=== PATIENT | male | born 1990 | race Caucasian/White ===

== ENCOUNTER 2017-06-12 14:56 | Inpatient (IN) | payer OTHER ==
[~2017-06-12] VITALS: Ht 182.9 cm; Wt 97.6 kg
[~2017-06-12 14:56] MED LIST: CYMBALTA60 M1 PO; PERCOCET 325 MG1 TA2 PO; SEROQUEL400 M1 PO; TOPAMAX25 M3 PO
--- NOTE | 2017-06-12 15:15 | ED PSYCHIATRIC COMPLAINT ---
See Addendum History of Present Illness General Chief Complaint: Psychiatric Related Complaint Stated Complaint: POSITIVE SI Source: patient Exam Limitations: no limitations Vital Signs & Intake/Output Vital Signs & Intake/Output Vital Signs Date Time Temp Pulse Resp B/P B/P Pulse O2 O2 Flow FiO2 Mean Ox Delivery Rate 06/12 1459 98.2 90 16 117/79 97 Room Air Allergies Coded Allergies: Penicillins (Severe, HIVES 02/11/16) cefaclor (From CECLOR) (Severe, RASH 02/11/16) bupropion (From WELLBUTRIN) (UNKNOWN 06/12/17) cariprazine (From VRAYLAR) (UNKNOWN 06/12/17) ziprasidone (From GEODON) (UNKNOWN 06/12/17) Reconcile Medications Duloxetine HCl (Cymbalta) 60 MG CAPSULE.DR 1 CAP PO DAILY DEPRESSION ( Reported) Oxcarbazepine 300 MG TABLET 1 TAB PO BID MENTAL HEALTH (Reported) Quetiapine Fumarate (Seroquel) 400 MG TABLET 1 TAB PO QPM DEPRESSION ( Reported) Topiramate (Topamax) 25 MG TABLET 3 TAB PO QPM MENTAL HEALTH (Reported) Triage Note: 27 YEAR OLD MALE TO ER WITH HIS MOM, PT COMPLAINS OF INCREASED DEPRESSION FOR THE PAST COUPLE OF WEEKS AND POSITIVE SI WITH NO PLAN.DENIES DRUG USE/ETOH.TAKES ALL MEDS PRESCRIBED Triage Nurses Notes Reviewed? yes Onset: Abrupt Duration: day(s): Timing: recent history HPI: 06/12/17 4:17 PM 27-year-old man presents to the emergency department complaining of depression and suicidal ideation. According to the patient he was in his usual state of health until the past 2 weeks when he developed depression and suicidal ideation. He says he does not have a plan. He does say that in the past he's attempted to kill himself by drug overdose. He denies any significant medical problems. The onset of the symptoms was abrupt, the duration has been 2 weeks, the severity is significant as his symptoms required him to come to the hospital for care Past History Travel History Traveled to [place] past 21 day No Medical History Any Pertinent Medical History? 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 No Review of Systems Review of Systems Constitutional: Reports: no symptoms. EENTM: Reports: no symptoms. Respiratory: Reports: no symptoms. Cardiovascular: Reports: no symptoms. GI: Reports: no symptoms. Genitourinary: Reports: no symptoms. Musculoskeletal: Reports: no symptoms. Skin: Reports: no symptoms. Neurological/Psychological: Reports: depressed. Hematologic/Endocrine: Reports: no symptoms. Immunologic/Allergic: Reports: no symptoms. All Other Systems: Reviewed and Negative Physical Exam Physical Exam General Appearance: well developed/nourished, alert, awake, anxious, moderate distress Head: atraumatic, normal appearance Eyes: Bilateral: normal appearance, PERRL, EOMI. Ears, Nose, Throat: normal ENT inspection Neck: normal inspection, supple, full range of motion Respiratory: normal breath sounds, chest non-tender, no respiratory distress Cardiovascular: regular rate/rhythm Gastrointestinal: soft, non-tender Extremities: normal range of motion Neurological/Psychiatric: no motor/sensory deficits, awake, agitated, alert Appearance/Memory/Insight: appropriate insight Behavoir/Eye Contact/Speech: cooperative Thoughts/Hallucinations: normal thought pattern, no apparent hallucination Skin: normal color, warm/dry SAD PERSONS SAD PERSONS Response Value Male Sex? yes 1 Age <19 or >45 years? yes 1 Depression/Hopelessness? yes 2 Previous Attempts/Psych Care yes 1 Rational Thinking Loss? yes 2 Single//? yes 1 Social Support? has no support 1 Total 9 SAD PERSONS Done? yes Progress Differential Diagnosis: drug intoxication, drug overdose, depression Plan of Care: Orders Procedure Date/time Status Continuous Observation Monitor 06/12 161 Active URINE DRUG SCREEN FOR ER ONLY 06/12 161 Active ETHANOL 06/12 161 Active COMPREHENSIVE METABOLIC PANEL 06/12 161 Active CBC WITHOUT DIFFERENTIAL 06/12 161 Active ED CRISIS PSYCH CONSULT 06/12 1616 Active Initial ED EKG: none Departure Departure Disposition: STILL A PATIENT Condition: Stable Clinical Impression Primary Impression: Depression Referrals: NOLBERTO BERUMEN,JULIANA Hassan (PCP/Family) Departure Forms: Customer Survey General Discharge Information
[2017-06-12] MEDS ORDERED: OXCARBAZEPINE300 M1 PO (15:31)
[2017-06-12 17:09] LABS: ABSOLUTE BASOPHIL COUNT 0 /CUMM (0.0-0.2); ABSOLUTE EOSINOPHIL COUNT 0.1 /CUMM (0.0-0.7); ABSOLUTE GRANULOCYTE CT 2.5 /CUMM (1.4-6.5); ABSOLUTE LYMPH COUNT 1.1 /CUMM (1.2-3.4); ABSOLUTE MONOCYTE COUNT 0.3 /CUMM (0.10-0.60); BASOPHIL % 0.4 % (0.0-2.0); GRANULOCYTE % 62.4 % (42.2-75.2); HEMATOCRIT 50.6 % (42-52); MEAN CORPUSCULAR HGB 29.4 PG (27.0-31.0); MEAN CORPUSCULAR HGB CONC 33.6 G/DL (33.0-37.0); MEAN CORPUSCULAR VOLUME 87.4 FL (80.0-94.0); MEAN PLATELET VOLUME 8.3 FL (7.4-10.4); PLATELET COUNT 179 /CUMM (130-400); RBC DISTRIBUTION WIDTH 12.5 % (11.5-14.5); RED BLOOD CELL CT 5.79 /CUMM (4.70-6.10)
--- NOTE | 2017-06-12 18:51 | ED PSYCH CRISIS CONSULTATION ---
Crisis Consult Basic Assessment Date of Consult: 06/12/17 Responsible Person/Accompanied By: Self Insurance Authorization: Insurance #1: Insurance name: GUADALUPE LEAVITT Phone number: Policy number: [id number] Group number: Authorization number: ED Provider: Patient's ED Provider: JORGE LUIS LEON DO Primary Care Physician: Patient's PCP: JULIANA ARVIZU MD PCP's Current Psychiatrist: Dr. Damien Enriquez Chief Complaint: Psychiatric Related Complaint Patient's Quote: " I feel very depressed" Present Illness: Patient is a 27 year single male who presents to the emergency room depressed, sad, and hopeless. Patient reports over the past two weeks his depression is getting worse and feeling hopeless. He reports having suicidal ideation stating " I don't want to live". The patient reports having no desire to do anything, spending more time in the bed, and isolating himself. He has a history of suicide attempts cutting his wrist and overdose with pills. He reports being treated by Dr. Sommer at [facility]. The patient reports being treated with Cymbalta 60 mg x1 daily, Seoquel 300 mg x1 daily and Trileptal 300 mg x2 daily. The patient denied any homicidal ideation, denied any auditory or visual hallucinations. He denied any substance abuse treatment or history. Patient's Address: [address] [place] [address] Other Phone Number: Who Do You Live With? Mother Family/Informants Interviewed: Mother Jazmine Frey [phone] Allergies - Coded Allergies: Penicillins (Severe, HIVES 02/11/16) cefaclor (From CECLOR) (Severe, RASH 02/11/16) bupropion (From WELLBUTRIN) (UNKNOWN 06/12/17) cariprazine (From VRAYLAR) (UNKNOWN 06/12/17) ziprasidone (From GEODON) (UNKNOWN 06/12/17) Current Medications - Scheduled Medications Duloxetine HCl (Cymbalta) 60 MG CAPSULE.DR Lakhani CAP PO DAILY DEPRESSION ( Reported) Entered as Reported by HUNTER PRESTON on 08/19/15 1344 Oxcarbazepine 300 MG TABLET 1 TAB PO BID MENTAL HEALTH #60 (Reported) Entered as Reported by HUNTER PRESTON on 06/12/17 1531 Quetiapine Fumarate (Seroquel) 400 MG TABLET 1 TAB PO QPM DEPRESSION ( Reported) Entered as Reported by HUNTER PRESTON on 08/19/15 1344 Discontinued Medications Topiramate (Topamax) 25 MG TABLET 3 TAB PO QPM MENTAL HEALTH (Reported) Discontinued reason: Med no longer needed Laboratory Results: Laboratory Tests 06/12/17 1700: Anion Gap 9, Estimated GFR > 60, BUN/Creatinine Ratio 18.9, Glucose 81, Calcium 9.6, Total Bilirubin 0.6, AST 25, ALT 41, Alkaline Phosphatase 56, Total Protein 7.0, Albumin 4.6, Globulin 2.4, Albumin/Globulin Ratio 1.9, CBC w Diff NO MAN DIFF REQ, RBC 5.79, MCV 87.4, MCH 29.4, RDW 12.5, MPV 8.3, Gran % 62.4, Lymphocytes % 26.5, Monocytes % 7.7, Eosinophils % 3.0, Basophils % 0.4, Absolute Granulocytes 2.5, Absolute Lymphocytes 1.1 L, Absolute Monocytes 0.3, Absolute Eosinophils 0.1, Absolute Basophils 0, PUBS MCHC 33.6, Serum Alcohol < 10.0 06/12/17 1624: Urine Opiates Screen < 100.00, Methadone Screen 95, Barbiturate Screen < 60, Ur Phencyclidine Scrn < 6.00, Amphetamines Screen < 100, U Benzodiazepines Scrn < 85, Urine Cocaine Screen < 50, Urine Cannabis Screen < 5.00 Past History Past Medical History Neurological: NONE EENT: NONE Cardiovascular: NONE Respiratory: NONE Gastrointestinal: NONE Hepatic: NONE Renal: nephrolithiasis Musculoskeletal: NONE Psychiatric: depression Endocrine: NONE Blood Disorders: NONE Cancer(s): 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 Response to Treatment fair Diagnosis by History: Bipolar II Substance Use/Abuse History Drug Use/Abuse Substances Used/Abused No Substance Abuse Treatment Substance Abuse Treatment Past Substance Abuse [place] No Inpatient Treatment No Outpatient Treatment No Current Mental Status Mental Status Orientation: Person, Place, Situation Affect: Depressed, Flat, Hopeless, Sad Speech: Soft Neuro-vegetative: Appetite Decreased, Helpless Appearance Appearance- Dress/Hygiene: Dressed in hospital clothing Behaviors Thought Process: WNL Thought Content: WNL Memory: WNL Insight: Fair SI/HI Risk Assessment Past Suicidal Ideation/Attempts Yes Current Suicidal Ideation/Att Yes Past Homicidal Ideation/Att: No Current Homicidal Ideation/Attempts No Degree of Intent: Thoughts/No Intent Danger To: Self Gravely Disabled: Lack of Insight, Poor Judgment Risk Factors: history of suicide atmpts, SA/MH hospitalized, limited support Lethality Ratin PTSD Checklist PTSD Score: PTSD Score: Response Value Disturbing memories,thoughts,images of stressful experience? Not at all 1 Disturbing dreams of stressful experience from past? Not at all 1 Suddenly acting/feeling as if reliving stressful experience? Not at all 1 Total 3 PTSD Done? patient declined ED Management Sitter: Yes Restraints: No DSM5/PS Stressors/Medical Prob Diagnosis' (DSM 5, Stressors, Medical): Bipolar II F31.81 Current GAF: 26 Comments: Pt presnets to the emergency room depressed, sad, hopeless, with suicide ideation, history of suicide attempts x 2, this clinician consulted with Dr. Fercho Enriquez who recommends the patient for inpatient treatment to stabilze his psychiatric symptoms. Departure Disposition Psych Medical Clearance Date: 06/12/17 Medically Cleared at: 1800 Time Started: 1800 Time Ended: 1900 Psychiatrist Consulted: Dr. Fercho Enriquez Date Disposition Established: 06/12/17 Time Disposition Established: 1899 Plan for Disposition - Modality: Inpatient Psychiatry Facility: [facility] Rationale for Disposition: Pt presnets to the emergency room depressed, sad, hopeless, with suicide ideation, history of suicide attempts x 2, this clinician consulted with Dr. Fercho Enriquez who recommends the patient for inpatient treatment to stabilze his psychiatric symptoms. Type of IP Admission: Voluntary Referrals NOLBERTO BERUMEN,JULIANA Hassan (PCP/Family)
--- NOTE | 2017-06-12 19:14 | ED PSY CRISIS COLLATERAL NOTE ---
Collateral Note Collateral Note Family/Inform/Minnie Contacts: This clinician spoke with mother Jazmine Frey [phone] who stated the client has been feeling more despressed over the past two weeks. She reports the patient is currently being treated at [facility] outpatient by Dr. Ulloa for Bipolar Disorder. The mother is concerned and states he is living with his older sibling.
--- NOTE | 2017-06-12 19:42 | IP CRISIS DIAG ASSESS PSYCH ---
See Addendum Diagnostic Assessment Basic Assessment Insurance Authorization: Insurance #1: Insurance name: GUADALUPE LEAVITT Phone number: Policy number: [id number] Group number: Authorization number: Primary Care Physician: Patient's PCP: JULIANA ARVIZU MD PCP's Patient's Quote: " I feel very depressed" Present Illness: Patient is a 27 year single male who presents to the emergency room depressed, sad, and hopeless. Patient reports over the past two weeks his depression is getting worse and feeling hopeless. He reports having suicidal ideation stating " I don't want to live". The patient reports having no desire to do anything, spending more time in the bed, and isolating himself. He has a history of suicide attempts cutting his wrist and overdose with pills. He reports being treated by Dr. Sommer at [facility] treatment. The patient reports being treated with Cymbalta 60 mg x1 daily, Seoquel 300 mg x1 daily and Trileptal 300 mg x2 daily. The patient denied any homicidal ideation, denied any auditory or visual hallucinations. He denied any substance abuse treatment or history. Patient's Address: [address] [place] [address] Other Phone Number: Who Do You Live With? Mother Feel Safe Where You Live? Yes Feel Safe in Your Relationship Yes Marital Status: single Do You Have Children? No Primary Language? Central African Family/Informants Interviewed: Mother Jazmine Frey [phone] Allergies - Coded Allergies: Penicillins (Severe, HIVES 02/11/16) cefaclor (From CECLOR) (Severe, RASH 02/11/16) bupropion (From WELLBUTRIN) (UNKNOWN 06/12/17) cariprazine (From VRAYLAR) (UNKNOWN 06/12/17) ziprasidone (From GEODON) (UNKNOWN 06/12/17) Current Medications - Scheduled Medications Duloxetine HCl (Cymbalta) 60 MG CAPSULE. 1 CAP PO DAILY DEPRESSION ( Reported) Entered as Reported by HUNTER PRESTON on 08/19/15 1344 Oxcarbazepine 300 MG TABLET 1 TAB PO BID MENTAL HEALTH #60 (Reported) Entered as Reported by HUNTER PRESTON on 06/12/17 1531 Quetiapine Fumarate (Seroquel) 400 MG TABLET 1 TAB PO QPM DEPRESSION ( Reported) Entered as Reported by HUNTER PRESTON on 08/19/15 1344 Discontinued Medications Topiramate (Topamax) 25 MG TABLET 3 TAB PO QPM MENTAL HEALTH (Reported) Discontinued reason: Med no longer needed Consequences of Psych Med Use: None reported Lab Results: Laboratory Tests 06/12/17 1700: Anion Gap 9, Estimated GFR > 60, BUN/Creatinine Ratio 18.9, Glucose 81, Calcium 9.6, Total Bilirubin 0.6, AST 25, ALT 41, Alkaline Phosphatase 56, Total Protein 7.0, Albumin 4.6, Globulin 2.4, Albumin/Globulin Ratio 1.9, CBC w Diff NO MAN DIFF REQ, RBC 5.79, MCV 87.4, MCH 29.4, RDW 12.5, MPV 8.3, Gran % 62.4, Lymphocytes % 26.5, Monocytes % 7.7, Eosinophils % 3.0, Basophils % 0.4, Absolute Granulocytes 2.5, Absolute Lymphocytes 1.1 L, Absolute Monocytes 0.3, Absolute Eosinophils 0.1, Absolute Basophils 0, PUBS MCHC 33.6, Serum Alcohol < 10.0 06/12/17 1624: Urine Opiates Screen < 100.00, Methadone Screen 95, Barbiturate Screen < 60, Ur Phencyclidine Scrn < 6.00, Amphetamines Screen < 100, U Benzodiazepines Scrn < 85, Urine Cocaine Screen < 50, Urine Cannabis Screen < 5.00 Toxicology Screen Completed? Yes Results: negative Past History Abuse/Trauma History Trauma History/Current Trauma: Denies Legal History Current Legal Status: none Have you ever been arrested? 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 Response to Treatment fair Diagnosis by History: Bipolar II Risk Factors: history of suicide atmpts, SA/MH hospitalized, limited support Substance Use/Abuse History Drug Use/Abuse minimum 12mo Hx Substances Used/Abused No Substance Abuse Treatment Substance Abuse Treatment Past Substance Abuse [place] No Inpatient Treatment No Outpatient Treatment No Sexual History Sexually Active No # of partners 0 Sexual Orientation Heterosexual Use of Protection No Sexual Concerns: None reported Education History Highest Level of Education: high school/GED Preferred Learning Style: auditory Current Mental Status Mental Status Orientation: Person, Place, Situation Affect: Depressed, Flat, Hopeless, Sad Speech: Soft Neuro-vegetative: Appetite Decreased, Helpless Appearance Appearance- Dress/Hygiene: Dressed in hospital clothing Behaviors Thought Process: WNL Thought Content: WNL Memory: WNL Insight: Fair SI/HI Risk Assessment - Minimum 6mo History- Past Suicidal Ideation/Attempts Yes Current Suicidal Ideation/Att Yes Past Homicidal Ideation/Att: No Current Homicidal Ideation/Attempts No Degree of Intent: Thoughts/No Intent Danger To: Self Gravely Disabled: Lack of Insight, Poor Judgment Risk Factors: history of suicide atmpts, SA/MH hospitalized, limited support Lethality Ratin Needs/Init TX Plan/Goals: symptoms stabilization, individual and group counseling. AUDIT-C Questionnaire: AUDIT-C Questionnaire: Response Value ETOH use in the past year Never 0 6 or > drinks per occasion Never 0 Total 0 DSM5/PS Stressors/Medical Prob Diagnosis' (DSM 5, Stressors, Medical): Bipolar II F31.81 Current GAF: 26 Comments: Pt presnets to the emergency room depressed, sad, hopeless, with suicide ideation, history of suicide attempts x 2, this clinician consulted with Dr. Fercho Enriquez who recommends the patient for inpatient treatment to stabilze his psychiatric symptoms.
[2017-06-12 22:40] VITALS: BP 131/73
[2017-06-12 22:46] VITALS: BP 131/73
[2017-06-12] MEDS ORDERED: MELATONIN3 M4 PO (23:11)
[2017-06-13 08:08] VITALS: BP 111/68
[2017-06-13 12:45] VITALS: BP 122/72
--- NOTE | 2017-06-13 13:29 | CPS MD/APRN INITIAL ASSE PSYCH ---
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 Feels that one day just stopped working and trying to get back stable since then. Notes last manic ( mixed) episode was about 10 years ago. Denies AVHs. Denies SI or HI currently. Denies alcohol or drug use. Past Psychiatric History Past Diagnosis(es)- if any: Bipolar disorder Past Precipitating Factors- if any: n/a - Include inpatient and outpatient treatment Treatment History: mult inpt years ago, more stable recently History of Suicide Attempts or Gestures + SA at past Substance Abuse History: Denied Allergies: Coded Allergies: Penicillins (Severe, HIVES 02/11/16) cefaclor (From CECLOR) (Severe, RASH 02/11/16) bupropion (From WELLBUTRIN) (DIZZINESS 06/12/17) cariprazine (From VRAYLAR) (NAUSEA 06/12/17) ziprasidone (From GEODON) (GI DISTRESS 06/12/17) Home Med List: Seroquel 300mg nightly Trileptal 300mg BID Cymbalta 60mg daily - Include any medical condition(s) that may - impact the patient's recovery/remission Past Medical History: see H&P Past History Medical History Neurological: NONE EENT: NONE Cardiovascular: NONE Respiratory: NONE Gastrointestinal: NONE Hepatic: NONE Renal: nephrolithiasis Musculoskeletal: NONE Psychiatric: depression Endocrine: NONE Blood Disorders: NONE Cancer(s): NONE 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 - #1 Recognizing dangerous situations. - #2 Coping Skills. - #3 Basic information about quitting. Status of Tobacco Cessation Counseling: Not Applicable Cessation Med Status Not Applicable Alcohol Screening - ETOH screen POS if BAL >=80 or Audit-C>= M4/F3 Audit-C Score from Diag Assess: 0 Blood Alcohol Level: Laboratory Tests 06/12 1700 Toxicology Serum Alcohol (<10 MG/DL) < 10.0 Alcohol Use Screening Results: Neg per Audit C &/or BAL - If ETOH counseling indicated - the following topics are required. - #1 Express concern about the patient's - drinking at unhealthy levels, include informing - of national norms for moderate drinking: - men <= 14 drinks/week, max 4 drinks/occasion - women <= 7 drinks/week, max 3 drinks/occasion - #2 Providing feedback, including linking alcohol to - negative physical effects (liver injury, hypertension) - negative emotional effects (relationship problems and - depression) - negative occupational consequences (reduced work - performance) - #3 Advising the patient to abstain from alcohol or - to drink below national norms for moderate drinking - (as listed above). Status of ETOH Use Counseling: N/A B/C NO ETOH Use Metabolic Screening - Screen if on a Neuroleptic Medication - Metabolic screening should include: - Blood Pressure, BMI, Glucose or Hgb A1c, & a - Lipid profile from within the past 365 days. Metabolic Screening BMI: 29.200 Blood Pressure: 122/72 Laboratory Results (If applicable): Laboratory Tests 06/13 06/12 06/12 0645 1700 1624 Chemistry Sodium (137 - 145 mmol/L) 143 Potassium (3.5 - 5.1 mmol/L) 4.2 Chloride (98 - 107 mmol/L) 103 Carbon Dioxide (22 - 30 mmol/L) 30 Anion Gap (5 - 16) 9 BUN (9 - 20 mg/dL) 17 Creatinine (0.7 - 1.2 mg/dL) 0.9 Estimated GFR (>60 ml/min) > 60 BUN/Creatinine Ratio (7 - 25 %) 18.9 Glucose (65 - 99 mg/dL) 81 Calcium (8.4 - 10.2 mg/dL) 9.6 Total Bilirubin (0.2 - 1.3 mg/dL) 0.6 AST (17 - 59 U/L) 25 ALT (21 - 72 U/L) 41 Alkaline Phosphatase (< 127 U/L) 56 Total Protein (6.3 - 8.2 g/dL) 7.0 Albumin (3.5 - 5.0 g/dL) 4.6 Globulin (1.9 - 4.2 gm/dL) 2.4 Albumin/Globulin Ratio (1.1 - 2.2 %) 1.9 Vitamin B12 (239 - 931 pg/mL) 425 TSH (0.270 - 4.200 uIU/mL) 1.230 Hematology CBC w Diff NO MAN DIFF REQ WBC (4.8 - 10.8 /CUMM) 4.0 L RBC (4.70 - 6.10 /CUMM) 5.79 Hgb (14.0 - 18.0 G/DL) 17.0 Hct (42 - 52 %) 50.6 MCV (80.0 - 94.0 FL) 87.4 MCH (27.0 - 31.0 PG) 29.4 RDW (11.5 - 14.5 %) 12.5 Plt Count (130 - 400 /CUMM) 179 MPV (7.4 - 10.4 FL) 8.3 Gran % (42.2 - 75.2 %) 62.4 Lymphocytes % (20.5 - 51.1 %) 26.5 Monocytes % (1.7 - 9.3 %) 7.7 Eosinophils % (0 - 5 %) 3.0 Basophils % (0.0 - 2.0 %) 0.4 Absolute Granulocytes (1.4 - 6.5 /CUMM) 2.5 Absolute Lymphocytes (1.2 - 3.4 /CUMM) 1.1 L Absolute Monocytes (0.10 - 0.60 /CUMM) 0.3 Absolute Eosinophils (0.0 - 0.7 /CUMM) 0.1 Absolute Basophils (0.0 - 0.2 /CUMM) 0 PUBS MCHC (33.0 - 37.0 G/DL) 33.6 Toxicology Urine Opiates Screen (>2000 NG/ML) < 100.00 Methadone Screen (>300 NG/ML) 95 Barbiturate Screen (>200 NG/ML) < 60 Ur Phencyclidine Scrn (>25 NG/ML) < 6.00 Amphetamines Screen (>1000 NG/ML) < 100 U Benzodiazepines Scrn (>200 NG/ML) < 85 Urine Cocaine Screen (>300 NG/ML) < 50 Urine Cannabis Screen (>50 NG/ML) < 5.00 Serum Alcohol (<10 MG/DL) < 10.0 Exam and Plan Mental Status Examination Ambulation Status: walking freely Appearance: as stated age Attitude towards examiner: cooperative Psychomotor activity: no red or ag Behavior: cooperative Quality of speech: n; r/r/p/v Affect: slightly flat, depressed, non-labile, appropriate, congruent Mood: "depressed" Suicidal Ideation: denied Homicidal Ideation: denied Hallucinations: denied Paranoid/Delusional Material: denied Difficulties with thought organization: none noted Insight: fair Judgment: fair Orientation: a/o x4 Cognition: grossly intact Memory Function: grossly intact Estimate of intellectual functioning: average Assets/Strengths Patient Identified Assets/Strengths: family support, wants to be stable Impression/Plan Impression and Plan: A/P: Pt with Bipolar disorder, depressed with worsening depression recently. - Include all active medical diagnosis that require tx DSM 5 Diagnosis(es): Bipolar disorder - Initial Tx Plan for Active Psych & Medical Conditions Treatment Plan: - Increase trileptal to 300mg daily and 600mg nightly - Decrease seroquel to 300mg nightly - Increase cymbalta to 90mg daily - Need collateral from outpt quality assurance monitor - Factors that would help patient function - in a less restrictive setting. Factors: none
--- NOTE | 2017-06-13 16:29 | PN- Att Addend ---
Attending Addendum Attending Brief Note Patient seen and examined. Plan of care discussed with the medical team and the patient. Available lab work and radiology test reports were reviewed. Chief complaint: Depressed mood and suicidal ideation History of present illness: Patient is 27-year-old male with history of for depression and bipolar disorder and past history of for suicidal ideation. Patient reports that he currently does not have any plan for suicide attempt. He otherwise feels well except for depressed mood. He denies any recent nausea vomiting abdominal pain dysuria fever chills or any difficulty breathing. He says he has been compliant with medications Past medical history; reviewed, history of depression and suicidal ideation Allergies Penicillins (Severe, HIVES 02/11/16) cefaclor (From CECLOR) (Severe, RASH 02/11/16) bupropion (From WELLBUTRIN) (DIZZINESS 06/12/17) cariprazine (From VRAYLAR) (NAUSEA 06/12/17) ziprasidone (From GEODON) (GI DISTRESS 06/12/17) Social history: Patient lives with the his family in [place]. Denies any smoking oral: Abuse or drug abuse. He is currently on disability does not work he did finish high school family history: Reviewed and noncontributory Vital Signs Date Time Temp Pulse Resp B/P B/P Pulse O2 O2 Flow FiO2 Mean Ox Delivery Rate 06/13 1245 100 122/72 06/13 0808 97.2 100 111/68 06/12 2246 97.7 90 131/73 06/12 2240 97.7 90 18 131/73 06/12 2213 98.2 84 16 122/72 95 Room Air 06/12 1958 97.9 91 18 119/71 97 Room Air 06/12 1655 Room Air Intake & Output 06/13 1600 06/13 0800 06/13 0000 Intake Total Output Total Balance Patient 215 lb Weight Exam: General: Patient awake alert oriented without any distress CVS: S1 plus S2 without any murmur or gallops Chest: Few scattered crepitation without any wheeze. There is no respiratory distress. 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 alert oriented without any focal neuro deficit and follows command appropriately Extremities: No edema; no clubbing or cyanosis noted Laboratory Tests 06/13 06/12 0645 1700 Chemistry Sodium (137 - 145 mmol/L) 143 Potassium (3.5 - 5.1 mmol/L) 4.2 Chloride (98 - 107 mmol/L) 103 Carbon Dioxide (22 - 30 mmol/L) 30 Anion Gap (5 - 16) 9 BUN (9 - 20 mg/dL) 17 Creatinine (0.7 - 1.2 mg/dL) 0.9 Estimated GFR (>60 ml/min) > 60 BUN/Creatinine Ratio (7 - 25 %) 18.9 Glucose (65 - 99 mg/dL) 81 Calcium (8.4 - 10.2 mg/dL) 9.6 Total Bilirubin (0.2 - 1.3 mg/dL) 0.6 AST (17 - 59 U/L) 25 ALT (21 - 72 U/L) 41 Alkaline Phosphatase (< 127 U/L) 56 Total Protein (6.3 - 8.2 g/dL) 7.0 Albumin (3.5 - 5.0 g/dL) 4.6 Globulin (1.9 - 4.2 gm/dL) 2.4 Albumin/Globulin Ratio (1.1 - 2.2 %) 1.9 Vitamin B12 (239 - 931 pg/mL) 425 TSH (0.270 - 4.200 uIU/mL) 1.230 Hematology CBC w Diff NO MAN DIFF REQ WBC (4.8 - 10.8 /CUMM) 4.0 L RBC (4.70 - 6.10 /CUMM) 5.79 Hgb (14.0 - 18.0 G/DL) 17.0 Hct (42 - 52 %) 50.6 MCV (80.0 - 94.0 FL) 87.4 MCH (27.0 - 31.0 PG) 29.4 RDW (11.5 - 14.5 %) 12.5 Plt Count (130 - 400 /CUMM) 179 MPV (7.4 - 10.4 FL) 8.3 Gran % (42.2 - 75.2 %) 62.4 Lymphocytes % (20.5 - 51.1 %) 26.5 Monocytes % (1.7 - 9.3 %) 7.7 Eosinophils % (0 - 5 %) 3.0 Basophils % (0.0 - 2.0 %) 0.4 Absolute Granulocytes (1.4 - 6.5 /CUMM) 2.5 Absolute Lymphocytes (1.2 - 3.4 /CUMM) 1.1 L Absolute Monocytes (0.10 - 0.60 /CUMM) 0.3 Absolute Eosinophils (0.0 - 0.7 /CUMM) 0.1 Absolute Basophils (0.0 - 0.2 /CUMM) 0 PUBS MCHC (33.0 - 37.0 G/DL) 33.6 Toxicology Serum Alcohol (<10 MG/DL) < 10.0 Assessment 27-year-old male with history of prior suicidal ideation and depression who presents with recurrence was a ligation and increase in depression symptoms. Patient has been compliant with his medication. His currently admitted for psychiatric management. * Suicidal ideation * Depression and bipolar disorder Plan * Continue current plan as per psychiatric * No specific recommendations are made otherwise
[2017-06-13 16:38] VITALS: BP 135/73
[2017-06-13 19:53] VITALS: BP 125/75
[2017-06-14 07:38] VITALS: BP 116/74
--- NOTE | 2017-06-14 11:55 | CP SOUTH PROGRESS NOTE PSYCH ---
Psych (Inpt) Progress Note Progress Note Include the following elements, when applicable: Involvement in the active treatment of the patient with behavioral observations of the patient and the patient's response to the treatment. Review of the ongoing treatment process in the context of the treatment plan. Indication of how multi-disciplinary staff members are carrying out the treatment plan. Plans for future interventions and recommendations for revision of the treatment plan. Liaison with other physicians/providers. Progress Note: Pt notes that had difficulty falling asleep last night. In the past he has used melatonin which he requested. Had visit from mother and aunt yesterday which went well. Looking forward to family meeting later this week. Current Medications Sig/Larry Start time Last Medication Dose Route Stop Time Status Admin Duloxetine HCl 90 MG DAILY 06/14 1000 AC 06/14 PO 0742 Duloxetine HCl 60 MG DAILY 06/13 1000 DC 06/13 PO 0912 Oxcarbazepine 300 MG DAILY 06/14 1000 AC 06/14 PO 0742 Oxcarbazepine 600 MG AT BEDTIME 06/13 2200 AC 06/13 PO 2117 Oxcarbazepine 300 MG BID 06/12 2200 DC 06/13 PO 0912 Quetiapine Fumarate 300 MG AT BEDTIME 06/13 2200 AC 06/13 PO 2117 Quetiapine Fumarate 400 MG AT BEDTIME 06/12 2200 DC 06/12 PO 2226 Laboratory Tests 06/14 06/13 06/12 0641 0645 1700 Chemistry Sodium (137 - 145 mmol/L) 143 Potassium (3.5 - 5.1 mmol/L) 4.2 Chloride (98 - 107 mmol/L) 103 Carbon Dioxide (22 - 30 mmol/L) 30 Anion Gap (5 - 16) 9 BUN (9 - 20 mg/dL) 17 Creatinine (0.7 - 1.2 mg/dL) 0.9 Estimated GFR (>60 ml/min) > 60 BUN/Creatinine Ratio (7 - 25 %) 18.9 Glucose (65 - 99 mg/dL) 81 Hemoglobin A1c (4.2 - 5.8 %) Pending Calcium (8.4 - 10.2 mg/dL) 9.6 Total Bilirubin (0.2 - 1.3 mg/dL) 0.6 AST (17 - 59 U/L) 25 ALT (21 - 72 U/L) 41 Alkaline Phosphatase (< 127 U/L) 56 Total Protein (6.3 - 8.2 g/dL) 7.0 Albumin (3.5 - 5.0 g/dL) 4.6 Globulin (1.9 - 4.2 gm/dL) 2.4 Albumin/Globulin Ratio (1.1 - 2.2 %) 1.9 Triglycerides (<150 mg/dL) 91 Cholesterol (< 200 MG/DL) 136 LDL Cholesterol, Calc (65 - 129 mg/dL) 81 HDL Cholesterol (40 - 60 mg/dL) 37 L Cholesterol/HDL Ratio (0.00 - 4.88 %) 4 Vitamin B12 (239 - 931 pg/mL) 425 TSH (0.270 - 4.200 uIU/mL) 1.230 Hematology CBC w Diff NO MAN DIFF REQ WBC (4.8 - 10.8 /CUMM) 4.0 L RBC (4.70 - 6.10 /CUMM) 5.79 Hgb (14.0 - 18.0 G/DL) 17.0 Hct (42 - 52 %) 50.6 MCV (80.0 - 94.0 FL) 87.4 MCH (27.0 - 31.0 PG) 29.4 RDW (11.5 - 14.5 %) 12.5 Plt Count (130 - 400 /CUMM) 179 MPV (7.4 - 10.4 FL) 8.3 Gran % (42.2 - 75.2 %) 62.4 Lymphocytes % (20.5 - 51.1 %) 26.5 Monocytes % (1.7 - 9.3 %) 7.7 Eosinophils % (0 - 5 %) 3.0 Basophils % (0.0 - 2.0 %) 0.4 Absolute Granulocytes (1.4 - 6.5 /CUMM) 2.5 Absolute Lymphocytes (1.2 - 3.4 /CUMM) 1.1 L Absolute Monocytes (0.10 - 0.60 /CUMM) 0.3 Absolute Eosinophils (0.0 - 0.7 /CUMM) 0.1 Absolute Basophils (0.0 - 0.2 /CUMM) 0 PUBS MCHC (33.0 - 37.0 G/DL) 33.6 Toxicology Serum Alcohol (<10 MG/DL) < 10.0 06/12 1624 Toxicology Urine Opiates Screen (>2000 NG/ML) < 100.00 Methadone Screen (>300 NG/ML) 95 Barbiturate Screen (>200 NG/ML) < 60 Ur Phencyclidine Scrn (>25 NG/ML) < 6.00 Amphetamines Screen (>1000 NG/ML) < 100 U Benzodiazepines Scrn (>200 NG/ML) < 85 Urine Cocaine Screen (>300 NG/ML) < 50 Urine Cannabis Screen (>50 NG/ML) < 5.00 Vital Signs Date Time Temp Pulse Resp B/P B/P Pulse O2 O2 Flow FiO2 Mean Ox Delivery Rate 06/14 0738 96.0 86 116/74 06/13 1953 98.1 100 125/75 06/13 1638 100 135/73 06/13 1245 100 122/72 MSE Appears as stated age. Cooperative behavior, good, appropriate eye contact. Nl speech rate and prosody. No psychomotor retardation or agitation. Mood ok Affect flat, depressed, constricted, appropriate, non-liable. Linear and goal directed thought process. Denies SI or HI. Does not appear to be responding to internal stimuli. Denies AVHs, paranoia, or delusions. I/J: limited A/P: Pt with Bipolar disorder, depressed with worsening depression recently. - Cont trileptal to 300mg daily and 600mg nightly - A1C pending, lipid panel wnl - Cont seroquel to 300mg nightly - Continue cymbalta to 90mg daily - Need collateral from outpt hand ii cutter
[2017-06-14 12:07] VITALS: BP 131/71
[2017-06-14 16:16] VITALS: BP 122/72
[2017-06-14 20:07] VITALS: BP 127/69
[2017-06-15 08:04] VITALS: BP 116/71
--- NOTE | 2017-06-15 12:16 | SOCIAL WORKER PROG NOTE PSYCH ---
See Addendum Social Work Progress Note Progress Note 11:00am This food writer met with pt. Pt reported depressed mood and identified his mother moving out of the house 1-2 months ago and the pt currently looking for an apartment as primary stressors. Pt stated that he is living in the [facility] where he lived with his mother until he can find a new apartment. He stated that he is also on a waiting list for disability. Pt reported past treatment, however, stated that he has had his most positive experiences at [facility]. He identified his supports as "my parents, family and my jn." He was in agreement of scheduling a family session with his mother. Pt discussed importance of identify a discharge plan of "I need to stay busy and have a schedule." He was in agreement with attending IOP following discharge from [facility] and stated that the has attended IOP in the past and found it to be effective. Pt denied SI/HI/AH/VH. "I just need to refocus." He denied any hx of substance use. Pt was actively and spontaneously engaged in this conversation, presenting with good eye contact. It was unclear if he was minimzing symptoms. This food writer will follow up with treatment team regarding this case as well as treatment planning.
[2017-06-15 12:24] VITALS: BP 133/75
--- NOTE | 2017-06-15 14:13 | CP SOUTH PROGRESS NOTE PSYCH ---
Psych (Inpt) Progress Note Progress Note Include the following elements, when applicable: Involvement in the active treatment of the patient with behavioral observations of the patient and the patient's response to the treatment. Review of the ongoing treatment process in the context of the treatment plan. Indication of how multi-disciplinary staff members are carrying out the treatment plan. Plans for future interventions and recommendations for revision of the treatment plan. Liaison with other physicians/providers. Progress Note: Current Medications Sig/Larry Start time Last Medication Dose Route Stop Time Status Admin Duloxetine HCl 90 MG DAILY 06/14 1000 AC 06/15 PO 0807 Oxcarbazepine 300 MG DAILY 06/14 1000 AC 06/15 PO 0806 Oxcarbazepine 600 MG AT BEDTIME 06/13 2200 AC 06/14 PO 212 Quetiapine Fumarate 300 MG AT BEDTIME 06/13 2200 AC 06/14 PO 212 Laboratory Tests 06/14 06/13 06/12 06/12 0641 0645 1700 1624 Chemistry Sodium (137 - 145 mmol/L) 143 Potassium (3.5 - 5.1 mmol/L) 4.2 Chloride (98 - 107 mmol/L) 103 Carbon Dioxide (22 - 30 mmol/L) 30 Anion Gap (5 - 16) 9 BUN (9 - 20 mg/dL) 17 Creatinine (0.7 - 1.2 mg/dL) 0.9 Estimated GFR (>60 ml/min) > 60 BUN/Creatinine Ratio (7 - 25 %) 18.9 Glucose (65 - 99 mg/dL) 81 Hemoglobin A1c (4.2 - 5.8 %) 4.8 Calcium (8.4 - 10.2 mg/dL) 9.6 Total Bilirubin (0.2 - 1.3 mg/dL) 0.6 AST (17 - 59 U/L) 25 ALT (21 - 72 U/L) 41 Alkaline Phosphatase (< 127 U/L) 56 Total Protein (6.3 - 8.2 g/dL) 7.0 Albumin (3.5 - 5.0 g/dL) 4.6 Globulin (1.9 - 4.2 gm/dL) 2.4 Albumin/Globulin Ratio (1.1 - 2.2 %) 1.9 Triglycerides (<150 mg/dL) 91 Cholesterol (< 200 MG/DL) 136 LDL Cholesterol, Calc (65 - 129 mg/dL) 81 HDL Cholesterol (40 - 60 mg/dL) 37 L Cholesterol/HDL Ratio (0.00 - 4.88 %) 4 Vitamin B12 (239 - 931 pg/mL) 425 TSH (0.270 - 4.200 uIU/mL) 1.230 Hematology CBC w Diff NO MAN DIFF REQ WBC (4.8 - 10.8 /CUMM) 4.0 L RBC (4.70 - 6.10 /CUMM) 5.79 Hgb (14.0 - 18.0 G/DL) 17.0 Hct (42 - 52 %) 50.6 MCV (80.0 - 94.0 FL) 87.4 MCH (27.0 - 31.0 PG) 29.4 RDW (11.5 - 14.5 %) 12.5 Plt Count (130 - 400 /CUMM) 179 MPV (7.4 - 10.4 FL) 8.3 Gran % (42.2 - 75.2 %) 62.4 Lymphocytes % (20.5 - 51.1 %) 26.5 Monocytes % (1.7 - 9.3 %) 7.7 Eosinophils % (0 - 5 %) 3.0 Basophils % (0.0 - 2.0 %) 0.4 Absolute Granulocytes (1.4 - 6.5 /CUMM) 2.5 Absolute Lymphocytes (1.2 - 3.4 /CUMM) 1.1 L Absolute Monocytes (0.10 - 0.60 /CUMM) 0.3 Absolute Eosinophils (0.0 - 0.7 /CUMM) 0.1 Absolute Basophils (0.0 - 0.2 /CUMM) 0 PUBS MCHC (33.0 - 37.0 G/DL) 33.6 Toxicology Urine Opiates Screen (>2000 NG/ML) < 100.00 Methadone Screen (>300 NG/ML) 95 Barbiturate Screen (>200 NG/ML) < 60 Ur Phencyclidine Scrn (>25 NG/ML) < 6.00 Amphetamines Screen (>1000 NG/ML) < 100 U Benzodiazepines Scrn (>200 NG/ML) < 85 Urine Cocaine Screen (>300 NG/ML) < 50 Urine Cannabis Screen (>50 NG/ML) < 5.00 Serum Alcohol (<10 MG/DL) < 10.0 Vital Signs Date Time Temp Pulse Resp B/P B/P Pulse O2 O2 Flow FiO2 Mean Ox Delivery Rate 06/15 1224 96 133/75 06/15 0804 97.5 93 116/71 06/14 2007 98.0 93 127/69 06/14 1616 96 122/72 A: Chart, crisis/admission/progress notes, labs, vital signs and medication list reviewed. Vital signs within normal limits. No new lab results today. Patient is a 27-year-old male with a history of Bipolar II disorder; in outpatient psychiatric treatment at [facility] with psychiatrist Dr. Sommer, who presented to the emergency department on 06/12/17 with passive suicidal ideation, increased depression and hopelessness with no insight into triggers. Patient was admitted to [facility] on voluntary status for safety and stabilization. Oupatient medications (verified by pt and Dr. Sommer): Trileptal 300mg BID Cymbalta 60mg daily Seroquel 300mg QHS Patient seen at 2:03PM. He presents superficially pleasant, mildly guarded and sluggish. Opens up when prompted. Describes coming to the ED d/t increase in depressed mood, hypersomnia, poor concentration, amotivation and passive SI. States symptoms have been ongoing for "some time." Reports 7 prior inpatient psychiatric hospitalizations and 2 prior suicide attempts by overdose (last attempt approx. 7 years ago). Agreeable to being here. States he is tolerating recent increases in Trileptal and Cymbalta well. Denies SEs. Describes his mood now as "pretty good." Affect calm, full, non-labile. Speech normal in rate, tone and volume. Eye contact appropriate. Offers no complaints. Reports sleeping well overnight. Describes appetite is "ok." Energy level is "not bad." Rates depression a 3/10 (10 being the worst). Rates anxiety a 4-5/10 (10 being the worst). Denies passive and active suicidal ideation. Denies homicidal ideation. Denies AVH, paranoid ideation. No evidence of illogical or delusional thought content. Thought process linear. Cognition grossly intact. Insight/judgement limited. Collateral received from outpatient psychiatrist, Dr. Sommer (#[phone]). Per MD, Colton has mentioned feeling depressed over their last few outpatient encounters, however, was not willing to have medication adjustments made. States Colton doesn't have much structure in his life, other than his involvement in the Jehovah Witness. 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 States the patient also has an unstable living situation which likely increases his stress; he has not yet received section 8 housing despite having applied and therefore goes back and forth staying between his sister's and mother's homes. Informed Dr. Sommer that patient is willing to transition to mental health IOP post-discharge, which she is in agreement with. P: -continue trileptal 300mg daily and 600mg QHS for mood stabilization. -continue seroquel 300mg QHS for mood stabilization/insomnia. -continue cymbalta 90mg daily for depression. -SW to arrange family meeting CARRIE. -arrange f/u w/ [facility] when stable for discharge.
[2017-06-15 16:24] VITALS: BP 128/57
[2017-06-15 19:50] VITALS: BP 133/75
--- NOTE | 2017-06-15 20:54 | SOCIAL WORKER PROG NOTE PSYCH ---
Social Work Progress Note Progress Note SW attempted to complete the patients social history, however he was spending time with his visitors and therefore SW was not able to meet with him.
[2017-06-16 07:50] VITALS: BP 108/66
--- NOTE | 2017-06-16 11:00 | SOCIAL WORKER SOCIAL HX PSYCH ---
Social History Basic Assessment Insurance Authorization: Insurance #1: Insurance name: GUADALUPE Chaudhary [employer] Phone number: Policy number: [id number] Group number: Authorization number: # [id number] Auth Number# [id number] Authorization from 06/12/17-06/14/17 Review on 06/15/17 Curr Source of Income/Entitlements: [employer] Primary Care Physician: Patient's PCP: JULIANA ARVIZU MD PCP's Present Problem: From the Crisis evaluation 06/12/17: Patient is a 27 year single male who presents to the emergency room depressed, sad, and hopeless. Patient reports over the past two weeks his depression is getting worse and feeling hopeless. He reports having suicidal ideation stating " I don't want to live". The patient reports having no desire to do anything, spending more time in the bed, and isolating himself. He has a history of suicide attempts cutting his wrist and overdose with pills. He reports being treated by Dr. Sommer at [facility] treatment. The patient reports being treated with Cymbalta 60 mg x1 daily, Seoquel 300 mg x1 daily and Trileptal 300 mg x2 daily. The patient denied any homicidal ideation, denied any auditory or visual hallucinations. He denied any substance abuse treatment or history. Primary Language? [place] Island[place] Language(s) Spoken At Home: [place] Living Situation Rents or Owns Home? rents Other Living Arrangement: relative's/guardian's evi Feel Safe Where You Are Living Yes Feel Safe in Relationships? Yes Allergies - Coded Allergies: Penicillins (Severe, HIVES 02/11/16) cefaclor (From CECLOR) (Severe, RASH 02/11/16) bupropion (From WELLBUTRIN) (DIZZINESS 06/12/17) cariprazine (From VRAYLAR) (NAUSEA 06/12/17) ziprasidone (From GEODON) (GI DISTRESS 06/12/17) Current Medications - Scheduled Medications Duloxetine HCl (Cymbalta) 60 MG CAPSULE. 1 CAP PO DAILY DEPRESSION ( Reported) Entered as Reported by HUNTER PRESTON on 08/19/15 1344 Melatonin 3 MG TABLET 1 TAB PO QHS SLEEP HELP (Reported) Entered as Reported by HANSA ROBBINS on 06/12/17 2311 Oxcarbazepine 300 MG TABLET 1 TAB PO BID MENTAL HEALTH #60 (Reported) Entered as Reported by HUNTER PRESTON on 06/12/17 1531 Quetiapine Fumarate (Seroquel) 400 MG TABLET 1 TAB PO QPM DEPRESSION ( Reported) Entered as Reported by HUNTER PRESTON on 08/19/15 1344 Discontinued Medications Topiramate (Topamax) 25 MG TABLET 3 TAB PO QPM MENTAL HEALTH (Reported) Discontinued reason: Med no longer needed Past History Past Medical History Neurological: NONE EENT: NONE Cardiovascular: NONE Respiratory: NONE Gastrointestinal: NONE Hepatic: NONE Renal: nephrolithiasis Musculoskeletal: NONE Psychiatric: bipolar disease, depression Endocrine: NONE Blood Disorders: NONE Cancer(s): NONE 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 No Mother's Age (Current/): 65 Relationship w/Mother: Very good Father's Age (Current/): 65 Relationship w/Father: Good Any Sibling(s)? Yes Sibling's Gender(s)/Age(s): male Sibling 1:, female Sibling 2:, female Sibling 3: Relationship w/Sibling(s): Good. He lives with his brother. He gets along best with his older sister,43. His younger sister,38,, "Has her own problems." Relationship w/Friends: Many friends from baptism, more than 100. Good relationship with them Family Psych/Sub Abuse/Add Hx: Denies family psychiatric history. Substance abuse: The patient feels his father drinks alcoholically. Abuse/Trauma History Trauma History/Current Trauma: Denies Legal History Legal Guardian/Address/Phone: NA Current Legal Status: none Pending Court Dates: NA Have you ever been arrested No Number of Arrests: 0 Hx of Juvenile Legal Charges? No Hx of Adult Legal Charges? No Civil Proceedings: None Domestic Relations Court: None Child Protective Serv Involvmnt No Retail Chain Store Area Supervisor None Psychosocial History Primary Support System: mother Strengths/Capabilities: Motivated seeking treatment for depression Physical Limitations (Interventions): None Last Physical: More than 2 years ago History of Seizures? No (Brother has epilepsy) History of Blackouts? No ADL Limitations: None [place]/Social/Peer Relations Many friends from baptism, more than 100. Good relationship with them Meaningful Activities: Basketball, walking, video games, baptism activities. Childhood Yarsani: Jehovah Witness Current Latter-Day Affiliation: Jehovah Witness Is Spirituality Important to You? Yes Patient's Ethnicity: [place] Cultural/Ethnic Issues: None Are There Developmental Issues? Yes (Talking delayed) If Yes, Explain: Talking delayed Milestones Achieved: fine motor, gross motor Psychiatric Treatment History Psych Treatment Inpatient Treatment Yes Outpatient Treatment Yes Location of Treatment [place] Reason for Treatment Bipolar II Dates of Treatment currently being treated at [facility] outpatient. Response to Treatment fair Precipitating Factors: Unstable living arrangement, with mother moving to diabled housing. Current Heavy Forger Helper: [facility] Anitra Sommer [facility] Treatment of Prior Episodes: Inpatient psychiatry 2008 and 2009 for suicidal ideation, and in 2012 for worsening depression. Treatment at [facility]. Diagnosis: Bipolar II Psychodynamic Issues: Patient is staying in his mother's condo after she moved ouot, per prior notes, and is waiting for his own apartment. Risk Factors: history of suicide atmpts, SA/MH hospitalized, male, limited support Substance Use/Abuse History Drug Use/Abuse Substance Used/Abused No History (Denies) Substance Abuse Treatment Substance Abuse Treatment Inpatient Treatment No Outpatient Treatment No Sexual History Sexually Active No # of partners 0 Sexual Orientation Heterosexual Use of Protection No Sexual Concerns: None reported Education History Highest Level of Education: high school/GED Preferred Learning Style: auditory HX of Learning Difficulties: None reported Barriers to Learning: None reported Special Communication Needs: None reported Employment History Employment Disability Not in Labor Force: Disabled Vocation/Occupational Hx: 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 of Jobs in Last 5 Years: 1 Attendance: Normal Performance: Good History Have You Been in The ? No Current Mental Status Problem List: 1. Depression 2. Suicidal ideation Mental Status Orientation: Person, Place, Situation Affect: Depressed, Flat, Hopeless, Sad Speech: Soft Neuro-vegetative: Appetite Decreased, Helpless Appearance Appearance- Dress/Hygiene: Dressed in street clothing Behaviors Thought Process: WNL Thought Content: WNL Memory: WNL Insight: Fair SI/HI Risk Assessment Past Suicidal Ideation/Attempts Yes Current Suicidal Ideation/Att Yes Past Homicidal Ideation/Att: No Current Homicidal Ideation/Attempts No Degree of Intent: Thoughts/No Intent Danger To: Self Gravely Disabled: Lack of Insight, Poor Judgment Lethality Ratin - Conclusion and Recommendations for treatment - and discharge planning Summary: Patient is a 27 year single male who presents to the emergency room depressed, sad, and hopeless. Patient reports over the past two weeks his depression is getting worse and feeling hopeless. He reports having suicidal ideation stating " I don't want to live". The patient reports having no desire to do anything, spending more time in the bed, and isolating himself. He has a history of suicide attempts cutting his wrist and overdose with pills. He reports being treated by Dr. Sommer at [facility].
--- NOTE | 2017-06-16 11:41 | CP SOUTH PROGRESS NOTE PSYCH ---
Psych (Inpt) Progress Note Progress Note Include the following elements, when applicable: Involvement in the active treatment of the patient with behavioral observations of the patient and the patient's response to the treatment. Review of the ongoing treatment process in the context of the treatment plan. Indication of how multi-disciplinary staff members are carrying out the treatment plan. Plans for future interventions and recommendations for revision of the treatment plan. Liaison with other physicians/providers. Progress Note: I discussed this patient's progress to date, current mental status, treatment process in the context of the treatment plan, and discharge planning with staff/ team in the daily morning inpatient team meeting. I also met with the patient myself in individual session. Current Medications Sig/Larry Start time Last Medication Dose Route Stop Time Status Admin Duloxetine HCl 90 MG DAILY 06/14 1000 AC 06/16 PO 0906 Oxcarbazepine 300 MG DAILY 06/14 1000 AC 06/16 PO 0906 Oxcarbazepine 600 MG AT BEDTIME 06/13 2200 AC 06/15 PO 2247 Quetiapine Fumarate 300 MG AT BEDTIME 06/13 2200 AC 06/15 PO 2247 Vital Signs Date Time Temp Pulse Resp B/P B/P Pulse O2 O2 Flow FiO2 Mean Ox Delivery Rate 06/16 0750 96.4 87 108/66 06/15 1950 98.7 96 133/75 06/15 1624 84 128/57 06/15 1224 96 133/75 A: Chart, progress notes, labs, vital signs and medication list reviewed. Vital signs within normal limits. No new lab results today. Family meeting was held at 1:30PM with the patient, his mother (Jazmine), Nel Das LCSW, and I. Patient's tx progress, medication regimen, level of safety and discharge planning were reviewed and discussed. Patient's mother stated that over the past 2 weeks the patient had been more isolative to his room, sleeping most of the day away and not engaging with others. She was concerned for his safety and thus brought him to the hospital. Stated that his mood and affect seem much improved since bringing him to the ED. Jazmine agrees that patient needs more structure in his life. Both the patient and his mother were in favor of discharge plan for him to follow up at [facility]. Patient's mother stated that he would return to live with his 42-year old brother, at her old condo. Patient was agreeable to plan. She expressed no safety concerns surrounding the patient's discharge or discharge plan. Today, the patient describes his mood as "pretty good." Affect bright, full, non -labile. Speech normal in rate, tone and volume. Eye contact appropriate. Reports feeling forgetful at times, believes it might be medication related. Also c/o of COE and increased HR despite his HR being within normal limits. Reports sleeping 6-7 hours a night, with mild interuptions. States this to be environmentally related d/t being on unit. Requested Melatonin, as this has helped in the past. Reports his appetite is fine. Describes improved energy level. Denies acute symptoms of anxiety and depression. Denies suicidal and homicidal ideation, plans and intent. Denies auditory and visual hallucinations. Denies paranoid ideation. No evidence of paranoia, hypomania/leighton or delusional thought content. Thought process linear, goal directed. Cognition grossly intact. Patient agreeable to continue taking prescribed medications; will continue to monitor for continued COE and any elevation in BP/HR as this could be a SE from recent increase in Cymbalta. P: -continue current medications. -start Ibuprofen 400mg Q6H PRN COE/mild pain. -start Melatonin 3mg QHS for sleep induction/insomnia. -monitor for safety, mood and SI. -discharge tomorrow with [facility] f/u and to home.
[2017-06-16 12:25] VITALS: BP 145/76
[2017-06-16 16:01] VITALS: BP 135/79
--- NOTE | 2017-06-16 17:50 | SOCIAL WORKER PROG NOTE PSYCH ---
Social Work Progress Note Progress Note 1:25pm Sonya Cheung APRN and this assembly instructions writer met with patient and his mother. Colton's mother reported that prior to this admission, the patient has been isolating and increased depression/anxiety. Pt reported struggling with memory at times, "sometimes I forget what I'm saying and I need to stop and think" and difficulty falling asleep. Pt reports improvement with mood. Pt discussed medication questions and concerns with Sonya Cheung APRN. He denied SI/HI/AH/VH. Patient plans to return home where he is living with his brother. Patient was in agreement with attending IOP and accepted an intake appointment for 06/17/17, at 12:45pm.
[2017-06-16 19:44] VITALS: BP 137/86
[2017-06-17 07:54] VITALS: BP 100/76
--- NOTE | 2017-06-17 08:13 | CP SOUTH PROGRESS NOTE PSYCH ---
Psych (Inpt) Progress Note Progress Note Include the following elements, when applicable: Involvement in the active treatment of the patient with behavioral observations of the patient and the patient's response to the treatment. Review of the ongoing treatment process in the context of the treatment plan. Indication of how multi-disciplinary staff members are carrying out the treatment plan. Plans for future interventions and recommendations for revision of the treatment plan. Liaison with other physicians/providers. Progress Note: I discussed this patient's progress to date, current mental status, treatment process in the context of the treatment plan, and discharge planning with staff/ team in the daily morning inpatient team meeting. I also met with the patient myself in individual session. Current Medications Sig/Larry Start time Last Medication Dose Route Stop Time Status Admin Duloxetine HCl 90 MG DAILY 06/14 1000 AC 06/16 PO 0906 Ibuprofen 400 MG Q6P PRN 06/16 1415 AC PO Melatonin 3 MG 2100 06/16 2100 AC 06/16 PO 2221 Oxcarbazepine 300 MG DAILY 06/14 1000 AC 06/16 PO 0906 Oxcarbazepine 600 MG AT BEDTIME 06/13 2200 AC 06/16 PO 2221 Quetiapine Fumarate 300 MG AT BEDTIME 06/13 2200 AC 06/16 PO 2221 Vital Signs Date Time Temp Pulse Resp B/P B/P Pulse O2 O2 Flow FiO2 Mean Ox Delivery Rate 06/17 0754 97.3 76 100/76 06/16 1944 98.2 92 137/86 06/16 1601 98 135/79 06/16 1225 97 145/76 A: Chart, progress notes, labs, vital signs and medication list were reviewed. Vital signs within normal limits. No new labs results today. Patient seen at 8:05AM. He presents calm and cooperative. Describes his mood as "a lot better." Affect blunted, calm, non-labile, appropriate. Made good eye contact. Speech normal in rate, tone and volume. He offers no complaints. Motivated to attend [facility] post-discharge. Rates fluctuating anxiety of 0-6/10 (10 being the worst). Remains unable to identify triggers. Rates depression a 2/10 ( 10 being the worst). Reports improved energy. Reports somewhat of a decrease in appetite, however admits to eating three meals daily. Reports sleeping well with new addition of Melatonin. Denies feeling hopeless, helpless, worthless and guilty. Denies passive and active suicidal ideation, plans and intent. Denies homicidal ideation. Denies paranoid ideation, auditory and visual hallucinations. There is no evidence of illogical thought content. Thought process linear, goal-directed. Cognition grossly intact. He denies further symptoms of headache and increased heart rate. Reports tolerating medications well and denies side effects. Reports feeling safe and ready for discharge. P: -discharge today into the care of his mother. -f/u at [facility] track - for intake today at 12:45PM. -patient advised to please take his medications as prescribed. all medications were e-prescribed to [facility] in [place], [place]. -patient advised that in the event of an emergency to call [phone]/go to the nearest emergency department.
--- NOTE | 2017-06-17 08:17 | Patient Discharge Instructions ---
Psych Discharge Inst General Discharge Information Reason for Admission: Worsening depression and suicidal ideation Psy Discharge Primary Diag+ Bipolar disorder, MRE depressed. Psy Discharge Secondary Diag+ N/A Summary Tests/Major Procedures N/A Studies Pending at OR: N/A Patient Instructions Contact Information Your Psychiatrist on [facility] was JEROME BERUMEN,LENNY Spencer/ [place] GUERRERO APRN. * If you are experiencing an emergency related to this hospitalization, please call [phone] to contact the treating psychiatrist or the psychiatrist-on- call. * To Request a copy of your medical records, please contact the Medical Records Department at [phone]. * To request results of studies pending at the time of discharge, please call [phone]. * Continue your Medications until directed to stop by your Healthcare provider. General Medication Information Please continue to take your new medications and your continued home medications , unless otherwise indicated on your discharge medication list, or unless directed by your or INVOICING SPECIALIST to stop them. Special Instructions: DIET: Regular. ACTIVITY LEVEL: No restrictions. Advance Directives Does the Patient have Medical Advance Directives No/Refused further info Does Pt have Psychiatric Advance Directives? No/Refused further info Does Patient have a Designated Surrogate Decision Maker: No Information About Psychiatric Advance Directives Provided? Refused Discharge Plan Post Hospital Treatment Plan: Provider Referral Service Date: 06/17/17 Referred To: [[facility]] Notes: [address] [phone] Intake assessment: 06/17/17, 12:45pm Patient was advised that in the event of an emergency, to call [phone]/go to the nearest emergency department.
[2017-06-17] MEDS ORDERED: MELATONIN3 M4 PO (08:59)
[2017-06-17] MEDS ORDERED: TRILEPTAL600 M1 PO (08:59)
[2017-06-17] MEDS ORDERED: CYMBALTA30 M1 PO (08:59)
[2017-06-17] MEDS ORDERED: TRILEPTAL300 M1 PO (08:59)
[2017-06-17] MEDS ORDERED: QUETIAPINE FUM300 M1 PO (08:59)
--- NOTE | 2017-06-17 10:14 | DISCHARGE SUMMARY REPORT-PSYCH ---
Visit Information Visit Dates/Diagnosis' Admission Date: 06/12/17 Discharge Date: 06/17/17 Reason for Admission: Worsening depression and suicidal ideation Psy Discharge Primary Diag: Bipolar disorder, MRE depressed. Psy Discharge Secondary Diag: N/A Hospital Course Significant Lab Findings: Lab HDL Cholesterol 37 mg/dL L 06/14/17 0641 Absolute Lymphocytes 1.1 /CUMM L 06/12/17 1700 WBC 4.0 /CUMM L 06/12/17 1700 06/13/17 EKG: Sinus rhythm with a rate of 92. Left axis deviation. Probably no significant change since previous tracing. IN: 160. QRSD: 88. QT: 332. QTc: 411. P: 53. QRS: -37. T: 60. Otherwise normal EKG confirmed by alteration worker Dr. Joshua Sims. Course Complications: None. Consultations: The patient was seen for admission history and physical by flight communications specialist Dr. Sonja Mcfadden. Please see his note for additional information. Allergies: Coded Allergies: Penicillins (Severe, HIVES 02/11/16) cefaclor (From CECLOR) (Severe, RASH 02/11/16) bupropion (From WELLBUTRIN) (DIZZINESS 06/12/17) cariprazine (From VRAYLAR) (NAUSEA 06/12/17) ziprasidone (From GEODON) (GI DISTRESS 06/12/17) Hospital Course/TX Response: The patient was monitored on the unit for safety, mood and suicidal ideation. He participated in multimodal treatments on the unit. Trileptal was increased from 300mg BID to 300mg daily and 600mg nightly for mood stabilization. Cymbalta was increased from 60mg daily to 90mg daily for depression. Seroquel 300mg nightly was continued for mood stabilization. Melatonin 3mg at bedtime was started for insomnia. Patient reported tolerating medications well and denied side effects. During the hospital course, the patient's mood and affect improved. Suicidal ideation remitted. A family meeting was held with the patient, his mother ( Jazmine), Nel Das LCSW, and Lizz. Patient's treatment progress, medication regimen, level of safety and discharge planning were reviewed and discussed. Patient's mother stated that 2 weeks prior to hospital admission the patient had been more isolative to his room, sleeping most of the day away and not engaging with others. She was concerned for his safety and thus brought him to the hospital. Stated that his mood and affect seemed much improved since bringing him to the ED. Jazmine agreed that the patient needs more structure in his life. Both the patient and his mother were in favor of a discharge plan for him to follow up at [facility] track. Patient's mother stated that he would return to live with his 42-year old brother, at her old condo. Patient was agreeable to plan. She expressed no safety concerns surrounding the patient's discharge or discharge plan. On the date of discharge, 06/17/17, the patient presented calm and cooperative. Described his mood as "a lot better." Affect blunted, calm, non-labile, appropriate. Made good eye contact. Speech normal in rate, tone and volume. He offered no complaints. Motivated to attend IOP post-discharge. Rated fluctuating anxiety of 0-6/10 (10 being the worst). Remained unable to identify triggers. Rated depression a 2/10 (10 being the worst). Reported improved energy. Reported somewhat of a decrease in appetite, however admitted to eating three meals daily. Reported sleeping well with new addition of Melatonin. Denied feeling hopeless, helpless, worthless and guilty. Denied passive and active suicidal ideation, plans and intent. Denied homicidal ideation. Denied paranoid ideation, delusions, auditory and visual hallucinations. There was no evidence of illogical thought content. Thought process linear, goal-directed. Cognition grossly intact. He denied further symptoms of headache and increased heart rate. Reported tolerating medications well and denied side effects. Reported feeling safe and ready for discharge. Discharge HBIPS - Tobacco Use Treatment Offered Post DC Medications Offered: Not Applicable Post DC Tobacco Treatment Plan: Not Applicable - EtOH/Drug Use D/O Treatment Offered Post DC Medications Offered: NA-No EtOH/Drug Use D/O Post DC EtOH/SubAbuse TX Plan: NA-No EtOH/Drug Use D/O Metabolic Screening - Screen if on a Neuroleptic Medication - Metabolic screening should include: - Blood Pressure, BMI, Glucose or Hgb A1c, & a - Lipid profile from within the past 365 days. Metabolic Screening () Not Applicable, patient not on a neuroleptic. OR ([X]) Patient on a neuroleptic(s) . Enter below results for Glucose or Hemoglobin A1C, and lipid panel if obtained during the last 365 days. BMI: 29.200 Blood Pressure: 100/76 Laboratory Results (If applicable): Lab Cholesterol 136 MG/DL 06/14/17 0641 Cholesterol/HDL Ratio 4 % 06/14/17 06 Glucose 81 mg/dL 06/12/17 1700 HDL Cholesterol 37 mg/dL L 06/14/17 0641 Hemoglobin A1c 4.8 % 06/14/17 06 LDL Cholesterol, Calc 81 mg/dL 06/14/17 06 Triglycerides 91 mg/dL 06/14/17 06 Discharge Instructions General Discharge Information Discharge Medications: Discharge Medications- (Dose, route, freq, indication): START taking these NEW Home Medications: Oxcarbazepine Dose: ORAL, Every Morning for Qty: 14 Sent to (Trileptal) 300 MG 1 Tablet mood stabilization Refills: 0 Pharm 1 TABLET Take 1 tab po QAM. Oxcarbazepine Dose: ORAL, AT BEDTIME for Qty: 14 Sent to (Trileptal) 600 MG 1 Tablet mood stabilization Refills: 0 Pharm 1 TABLET Take 1 tab po QHS. Duloxetine Dose: ORAL, Every Morning for Qty: 42 Sent to Hydrochloride 3 Capsule depression Refills: 0 Pharm 1 (Cymbalta) 30 MG Take 3 caps (90mg) po CAPSULE.DR ROSARIO. Quetiapine Fumarate Dose: ORAL, AT BEDTIME for Qty: 14 Sent to (Quetiapine 1 Tablet mood stabilization Refills: 0 Pharm 1 Fumarate) 300 MG Take 1 tab po QHS. TABLET CHANGES to Home Medications: Melatonin (Melatonin) 3 Dose: ORAL, TAKE AT BEDTIME Sent to MG TABLET 1 Tablet for sleep Pharm 1 induction/insomnia Take 1 tab po QHS. (changed from: TAKE AT BEDTIME for SLEEP HELP [ No Instructions ]) STOP taking these DISCONTINUED Home Medications: Duloxetine HCl (Cymbalta) 60 Dose: ORAL, DAILY for DEPRESSION MG CAPSULE. 1 Capsule Reason Stopped: Changed Dose Quetiapine Fumarate (Seroquel) Dose: ORAL, Every night for DEPRESSION 400 MG TABLET 1 Tablet Reason Stopped: Changed how often to take Topiramate (Topamax) 25 MG Dose: ORAL, Every night for MENTAL TABLET 3 Tablet HEALTH Reason Stopped: Med no longer needed Oxcarbazepine (Oxcarbazepine) Dose: ORAL, TWICE DAILY for MENTAL 300 MG TABLET 1 Tablet HEALTH Reason Stopped: Changed Dose 1: [facility] # [id number] [id number] [facility] [place] [address] Your Preferred Pharmacy [facility] # [id number] [facility] [place], [place] [address] Multiple Neuroleptics: ([X]) Not Applicable OR Document below three failed attempts at monotherapy, or a plan to taper to monotherapy, or augmentation of Clozapine. () Patient's Diet: Regular. Patient's Activity: No restrictions. DC Disposition: To return to live in his mother's condo with his brother. Recommendations: The patient was advised to please take his medications as prescribed. He was advised to follow up with scheduled after care IOP treatment. He was advised that in the event of an emergency, to call [phone]/go to the nearest emergency department. Patient verbalized understanding of all instructions. Referred To: Referred To: [facility] Notes: [facility] - track [address] [place] [address] (t) [phone] Intake assessment: 06/17/17, 12:45pm Copies To: [facility]
--- NOTE | 2017-06-17 11:31 | SOCIAL WORKER PROG NOTE PSYCH ---
Social Work Progress Note Progress Note 11:10am This chief underwriter met with patient to discuss discharge plans. Pateint appears motivated to continue with the plan of attending IOP with an intake appointment of today, 06/17/17, at 12:45pm. He stated that his mother will pick him up following the intake. Patient identified his mother as the person he would call for support if needed. He denied SI/HI/AH/VH.
== END 2017-06-17 12:50 | DRG 753 ==
LOC: ERH 14:56 → ERHI 18:47 → CP SOUTH 18:47 → ENRESERV 21:00 → ENTRNSPT 22:27 → EDTRNSPTSTS 22:30 → CMPTRNSPT 22:39 → CP SOUTH 22:43 → ENPENDDIS 06-17 13:30
PROVIDERS: Emergency Medicine; Student in an Organized Health Care Education/Training Program; ADMIT Psychiatry & Neurology Addiction Medicine
DX: F31.9 Bipolar disorder, unspecified (principal)
CPT/HCPCS: 36415; 80307; 93005; 93010; G0463; G0480

== ENCOUNTER 2018-05-21 14:34 | Inpatient (IN) | payer OTHER ==
[~2018-05-21] VITALS: Ht 188 cm; Wt 107.0 kg
[~2018-05-21 14:34] MED LIST changes: +CYMBALTA30 M1 PO; +MELATONIN3 M4 PO; +OXCARBAZEPINE300 M1 PO; +QUETIAPINE FUM300 M1 PO; +TRILEPTAL300 M1 PO; +TRILEPTAL600 M1 PO
[2018-05-21] MEDS ORDERED: MIRTAZAPINE15 M2 PO (15:28)
[2018-05-21] MEDS ORDERED: CYMBALTA60 M1 PO (15:28)
--- NOTE | 2018-05-21 15:29 | ED PSYCHIATRIC COMPLAINT ---
History of Present Illness General Chief Complaint: Psychiatric Related Complaint Stated Complaint: + SI Source: patient, old records Exam Limitations: no limitations Vital Signs & Intake/Output Vital Signs & Intake/Output Vital Signs Date Time Temp Pulse Resp B/P B/P Pulse O2 O2 Flow FiO2 Mean Ox Delivery Rate 05/21 1446 100 20 111/65 99 Allergies Coded Allergies: Penicillins (Severe, HIVES 02/11/16) cefaclor (From CECLOR) (Severe, RASH 02/11/16) bupropion (From WELLBUTRIN) (DIZZINESS 06/12/17) cariprazine (From VRAYLAR) (NAUSEA 06/12/17) ziprasidone (From GEODON) (GI DISTRESS 06/12/17) Reconcile Medications Duloxetine HCl (Cymbalta) 60 MG CAPSULE.DR 1 CAP PO DAILY MENTAL HEALTH ( Reported) Mirtazapine 15 MG TABLET 1 TAB PO QPM SLEEP (Reported) Oxcarbazepine (Trileptal) 300 MG TABLET 1 TAB PO QAM mood stabilization Take 1 tab po QAM. Oxcarbazepine (Trileptal) 600 MG TABLET 1 TAB PO AT BEDTIME mood stabilization Take 1 tab po QHS. Quetiapine Fumarate 300 MG TABLET 1 TAB PO AT BEDTIME mood stabilization Take 1 tab po QHS. Triage Note: PER PT +SI WITH NO SPECIFIC PLAN BUT FEELING THIS WAY FOR A FEW DAYS, DENIES ETOH/DRUG USE Triage Nurses Notes Reviewed? yes Onset: Last week Duration: day(s):, constant, continues in ED, getting worse Timing: recent history Severity: severe Associated Symptoms: impaired concentration, suicidal ideation HPI: Several days prior to admission patient complains of increasing depression sleeping loss of appetite anhedonia thoughts of suicide without a specific plan. Denies fever chills nausea vomiting diarrhea abdominal pain chest pain shortness breath headache dysuria rash bleeding hallucinations homicidal ideation. Past History Travel History Traveled to [place] past 21 day No Medical History Any Pertinent Medical History? 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 No Review of Systems Review of Systems Constitutional: Reports: no symptoms. EENTM: Reports: no symptoms. Respiratory: Reports: no symptoms. Cardiovascular: Reports: no symptoms. GI: Reports: no symptoms. Genitourinary: Reports: no symptoms. Musculoskeletal: Reports: no symptoms. Skin: Reports: no symptoms. Neurological/Psychological: Reports: see HPI, depressed, emotional problems. Hematologic/Endocrine: Reports: no symptoms. Immunologic/Allergic: Reports: no symptoms. All Other Systems: Reviewed and Negative Physical Exam Physical Exam General Appearance: well developed/nourished, alert, awake, comfortable, moderate distress Head: atraumatic, normal appearance Eyes: Bilateral: normal appearance, PERRL, EOMI. Ears, Nose, Throat: normal pharynx, normal ENT inspection, hearing grossly normal Neck: normal inspection, supple, full range of motion, no midline tenderness Respiratory: normal breath sounds, chest non-tender, no respiratory distress, quiet respiration, lungs clear Cardiovascular: regular rate/rhythm, normal peripheral pulses, norml femoral pulses equa Gastrointestinal: normal bowel sounds, soft, non-tender, no organomegaly Extremities: normal range of motion, no ligament instability Neurological/Psychiatric: no motor/sensory deficits, awake, alert, site auditor II-XII nml as tested, depressed affect, oriented x 3 Appearance/Memory/Insight: impaired insight Behavoir/Eye Contact/Speech: cooperative, decreased rate of speech Thoughts/Hallucinations: no apparent hallucination Skin: intact, normal color, warm/dry SAD PERSONS SAD PERSONS Response Value Male Sex? yes 1 Depression/Hopelessness? yes 2 Previous Attempts/Psych Care yes 1 Rational Thinking Loss? yes 2 Single//? yes 1 Social Support? has support 0 Stated Future Intent? yes 2 Total 9 SAD PERSONS Done? yes Progress Differential Diagnosis: drug intoxication, drug overdose, drug withdrawal, electrolyte abnormality, hypoglycemia Plan of Care: Orders Procedure Date/time Status Regular Diet 05/21 D Active Continuous Observation Monitor 05/21 144 Active URINE DRUG SCREEN FOR ER ONLY 05/21 1445 Complete URINALYSIS 05/21 144 Complete ETHANOL 05/21 1445 Complete COMPREHENSIVE METABOLIC PANEL 05/21 1445 Complete CBC WITHOUT DIFFERENTIAL 05/21 144 Complete ED CRISIS PSYCH CONSULT 05/21 1445 Active Laboratory Tests 05/21/18 1805: Urine Opiates Screen < 100, Methadone Screen 81, Barbiturate Screen < 60, Ur Phencyclidine Scrn < 6.00, Amphetamines Screen < 100, U Benzodiazepines Scrn < 85, Urine Cocaine Screen < 50, Urine Cannabis Screen < 5.00, Urinalysis PACKD H , Urine Color YEL, Urine Clarity CLDY H, Urine pH 8.0, Ur Specific [place] 1.015, Urine Protein NEG, Urine Ketones NEG, Urine Nitrite NEG, Urine Bilirubin NEG, Urine Urobilinogen 1.0, Ur Leukocyte Esterase NEG, Ur Microscopic SEDIMENT EXAMINED, Urine Hemoglobin NEG, Urine Glucose NEG 05/21/18 1535: Anion Gap 10, Estimated GFR > 60, BUN/Creatinine Ratio 17.8, Glucose 81, Calcium 9.1, Total Bilirubin 0.4, AST 21, ALT 38, Alkaline Phosphatase 56, Total Protein 6.5, Albumin 3.9, Globulin 2.6, Albumin/Globulin Ratio 1.5, CBC w Diff NO MAN DIFF REQ, RBC 5.42, MCV 86.9, MCH 29.0, MCHC 33.4, RDW 13.3, MPV 8.4, Gran % 63.0, Lymphocytes % 21.4, Monocytes % 10.7 H, Eosinophils % 4.4, Basophils % 0.5, Absolute Granulocytes 3.2, Absolute Lymphocytes 1.1 L, Absolute Monocytes 0.5, Absolute Eosinophils 0.2, Absolute Basophils 0, Serum Alcohol < 10.0 Departure Departure Disposition: STILL A PATIENT Condition: Stable Clinical Impression Primary Impression: Bipolar disorder current episode depressed Secondary Impressions: Suicidal ideation Referrals: Sam BERUMEN,David Hassan (PCP/Family) Departure Forms: Customer Survey General Discharge Information Psych Admission Note Psychiatric Admission: I have seen and evaluated ODALIS NUNEZ. I have also reviewed all the pertinent lab results and diagnostic results. ODALIS NUNEZ will be admitted to our inpatient Psychiatric unit for treatment and care.
[2018-05-21 15:50] LABS: ABSOLUTE BASOPHIL COUNT 0 /CUMM (0.0-0.2); ABSOLUTE EOSINOPHIL COUNT 0.2 /CUMM (0.0-0.7); ABSOLUTE GRANULOCYTE CT 3.2 /CUMM (1.4-6.5); ABSOLUTE LYMPH COUNT 1.1 /CUMM (1.2-3.4); ABSOLUTE MONOCYTE COUNT 0.5 /CUMM (0.10-0.60); BASOPHIL % 0.5 % (0.0-2.0); EOSINOPHIL % 4.4 % (0-5); HEMATOCRIT 47.2 % (42-52); MEAN CORPUSCULAR HGB CONC 33.4 G/DL (33.0-37.0); MEAN CORPUSCULAR VOLUME 86.9 FL (80.0-94.0); MEAN PLATELET VOLUME 8.4 FL (7.4-10.4); PLATELET COUNT 194 /CUMM (130-400); RBC DISTRIBUTION WIDTH 13.3 % (11.5-14.5); RED BLOOD CELL CT 5.42 /CUMM (4.70-6.10)
--- NOTE | 2018-05-21 17:55 | ED PSYCH CRISIS CONSULTATION ---
Crisis Consult Basic Assessment Date of Consult: 05/21/18 Responsible Person/Accompanied By: self Insurance Authorization: Insurance #1: Insurance name: GUADALUPE LEAVITT Phone number: Policy number: [id number] Group number: Authorization number: ED Provider: Patient's ED Provider: Darius Avila MD Primary Care Physician: Patient's PCP: David Vargas MD PCP's Current Psychiatrist: Anitra Sommer MD Chief Complaint: Psychiatric Related Complaint Patient's Quote: "I am feeling more depressed and more irritable." Present Illness: The patient is a 28 year old single male brought to the ED by his mother at the patient's request. The pt stated "I am feeling more depressed and more irritable." The pt reports he was scheduled today for his second day of IOP and came to ED instead. The pt is requesting inpatient treatment. During this assessment the patient presented calm, cooperative, alert and oriented. The pt made poor eye contact and his speech was goal directed. The pt reports he wishes he was but denies a suicide plan. The pt denies HI, AH and VH. The pt also stated he has urges to go crazy but he holds back. The pt stated if he did not hold back he would scream. The patient denies drug and alcohol use and his toxicology screen is negative. The patient reports 8 -9 past hospitalizations for depression with SI. The pt stated he was last hospitalized approximately 1 year ago. The pt reports 1 past suicide attempt approximately 7 years ago. The pt stated he took an overdose of his prescribed medication which he slept off then went to the hospital. The pt denies any recent stressors increasing his depression. 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 The pt reports that 2 weeks ago he was sleeping 5 hours per night and for the past week he has been sleeping 10 hours per night. The pt reports poor concentration, lack of interest and inconsistent appetite. The C-SSRS was completed and placed in the pts chart. Previous records indicate the pt was most recently hospitalized at [facility] May 2017. His discharge diagnosis is listed as Bipolar Disorder MRE Depressed. The pt reports he lives by himself for the past 6 months in a condo he rents from his mother. The pt stated his parents and siblings are supportive of him. The pt reports his only source of income is disability for mental illness. The pt reports he is prescribed Cymbalta, Trileptal, Seroquel and Mirtazapine which he takes as prescribed. The pt stated he has been in treatment with Dr. Sommer for approximately the past [address] Sommer referred the pt to IOP. The pt last saw Dr. Sommer approximately 1 week ago. This adjusto writer operator spoke by phone with the pts mother Jazmine Frey ([phone]) who stated the pt is very depressed. Mother reports the pt missed IOP last week. The mother stated the pt has been focused on the recent suicides covered in the news. Mother stated she sees the pt declining and she is in support of hospitalization. Mother reports she doesnt know what else to do. This adjusto writer operator spoke by phone with Dr. Sommer who stated the pts depression is worse which is why she referred him to IOP. Dr. Sommer stated the pt is not functioning and she is in support of hospitalization. Pts presentation and hx discussed with Dr. Elena, plan is for hospitalization. Patient's Address: [address] [place] [address] Other Phone Number: Who Do You Live With? Patient/Self Family/Informants Interviewed: Mother, Dr. Sommer (outpatient psychaitrist) Allergies - Coded Allergies: Penicillins (Severe, HIVES 02/11/16) cefaclor (From CECLOR) (Severe, RASH 02/11/16) bupropion (From WELLBUTRIN) (DIZZINESS 06/12/17) cariprazine (From VRAYLAR) (NAUSEA 06/12/17) ziprasidone (From GEODON) (GI DISTRESS 06/12/17) Current Medications - Scheduled Medications Duloxetine HCl (Cymbalta) 60 MG CAPSULE. 1 CAP PO DAILY MENTAL HEALTH #30 ( Reported) Entered as Reported by Kyle Davidson on 05/21/18 1528 Mirtazapine 15 MG TABLET 1 TAB PO QPM SLEEP #30 (Reported) Entered as Reported by Kyle Davidson on 05/21/18 1528 Oxcarbazepine (Trileptal) 300 MG TABLET 1 TAB PO QAM mood stabilization #14 TAB Prescribed by Queenie Cheung APRN on 06/17/17 Oxcarbazepine (Trileptal) 600 MG TABLET 1 TAB PO AT BEDTIME mood stabilization #14 TAB Prescribed by Queenie Cheung APRN on 06/17/17 Quetiapine Fumarate 300 MG TABLET 1 TAB PO AT BEDTIME mood stabilization #14 TAB Prescribed by Queenie Cheung APRN on 06/17/17 Laboratory Results: Laboratory Tests 05/21/18 1535: Anion Gap 10, Estimated GFR > 60, BUN/Creatinine Ratio 17.8, Glucose 81, Calcium 9.1, Total Bilirubin 0.4, AST 21, ALT 38, Alkaline Phosphatase 56, Total Protein 6.5, Albumin 3.9, Globulin 2.6, Albumin/Globulin Ratio 1.5, CBC w Diff NO MAN DIFF REQ, RBC 5.42, MCV 86.9, MCH 29.0, MCHC 33.4, RDW 13.3, MPV 8.4, Gran % 63.0, Lymphocytes % 21.4, Monocytes % 10.7 H, Eosinophils % 4.4, Basophils % 0.5, Absolute Granulocytes 3.2, Absolute Lymphocytes 1.1 L, Absolute Monocytes 0.5, Absolute Eosinophils 0.2, Absolute Basophils 0, Serum Alcohol < 10.0 Past History Past Medical History Neurological: NONE EENT: NONE Cardiovascular: NONE Respiratory: NONE Gastrointestinal: NONE Hepatic: NONE Renal: nephrolithiasis Musculoskeletal: NONE Psychiatric: bipolar disease, depression Endocrine: NONE Blood Disorders: NONE Cancer(s): NONE 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 Reason for Treatment Bipolar, depression, SI Dates of Treatment long hx Response to Treatment inconsistent Diagnosis by History: Bipolar Disorder Substance Use/Abuse History Drug Use/Abuse Substances Used/Abused No Substance Abuse Treatment Substance Abuse Treatment Past Substance Abuse [place] No Current Mental Status Mental Status Orientation: Person, Place, Situation Affect: Depressed, Sad Speech: WNL Neuro-vegetative: Concentration Poor, Loss of Interest, Sleep Disturbance Appearance Appearance- Dress/Hygiene: appropriate Behaviors Thought Process: WNL Thought Content: WNL Memory: WNL Insight: Fair SI/HI Risk Assessment Past Suicidal Ideation/Attempts Yes Current Suicidal Ideation/Att Yes Past Homicidal Ideation/Att: No Current Homicidal Ideation/Attempts No Degree of Intent: Wishes to be , no plan Danger To: Self Gravely Disabled: Inability Risk Factors: access to lethal means, chronic/serious med cond., high anxiety/ distress, history of suicide atmpts, SA/MH hospitalized, lack of outcome concern , lives alone, male, limited support Lethality Ratin PTSD Checklist PTSD Done? patient declined ED Management Sitter: Yes Restraints: No DSM5/PS Stressors/Medical Prob Diagnosis' (DSM 5, Stressors, Medical): F31.9 Unspecified Bipolar and Related Disorder Current GAF: 29 Departure Disposition Psych Medical Clearance Date: 05/21/18 Medically Cleared at: 1645 Time Started: 1645 Time Ended: 174 Psychiatrist Consulted: Dr. Elena Date Disposition Established: 05/21/18 Time Disposition Established: 1752 Plan for Disposition - Modality: Inpatient Psychiatry Facility: [facility] Rationale for Disposition: Pt is gravely disabled and a risk to himself. Type of IP Admission: Voluntary Referrals Sam BERUMEN,David Hassan (PCP/Family)
--- NOTE | 2018-05-21 19:29 | IP CRISIS DIAG ASSESS PSYCH ---
Diagnostic Assessment Basic Assessment Insurance Authorization: Insurance #1: Insurance name: GUADALUPE LEAVITT Phone number: Policy number: [id number] Group number: Authorization number: Authorization # [id number] From - To 05/21/2018 - 05/23/2018 Primary Care Physician: Patient's PCP: David Vargas MD PCP's Patient's Quote: "I am feeling more depressed and more irritable." Present Illness: The patient is a 28 year old single male brought to the ED by his mother at the patient's request. The pt stated "I am feeling more depressed and more irritable." The pt reports he was scheduled today for his second day of IOP and came to ED instead. The pt is requesting inpatient treatment. During this assessment the patient presented calm, cooperative, alert and oriented. The pt made poor eye contact and his speech was goal directed. The pt reports he wishes he was but denies a suicide plan. The pt denies HI, AH and VH. The pt also stated he has urges to go crazy but he holds back. The pt stated if he did not hold back he would scream. The patient denies drug and alcohol use and his toxicology screen is negative. The patient reports 8 -9 past hospitalizations for depression with SI. The pt stated he was last hospitalized approximately 1 year ago. The pt reports 1 past suicide attempt approximately 7 years ago. The pt stated he took an overdose of his prescribed medication which he slept off then went to the hospital. The pt denies any recent stressors increasing his depression. 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 The pt reports that 2 weeks ago he was sleeping 5 hours per night and for the past week he has been sleeping 10 hours per night. The pt reports poor concentration, lack of interest and inconsistent appetite. The C-SSRS was completed and placed in the pts chart. Previous records indicate the pt was most recently hospitalized at [facility] May 2017. His discharge diagnosis is listed as Bipolar Disorder MRE Depressed. The pt reports he lives by himself for the past 6 months in a condo he rents from his mother. The pt stated his parents and siblings are supportive of him. The pt reports his only source of income is disability for mental illness. The pt reports he is prescribed Cymbalta, Trileptal, Seroquel and Mirtazapine which he takes as prescribed. The pt stated he has been in treatment with Dr. Sommer for approximately the past [address] Sommer referred the pt to [facility]. The pt last saw Dr. Sommer approximately 1 week ago. This board writer spoke by phone with the pts mother Jazmine Frey ([phone]) who stated the pt is very depressed. Mother reports the pt missed IOP last week. The mother stated the pt has been focused on the recent suicides covered in the news. Mother stated she sees the pt declining and she is in support of hospitalization. Mother reports she doesnt know what else to do. This board writer spoke by phone with Dr. Sommer who stated the pts depression is worse which is why she referred him to IOP. Dr. Sommer stated the pt is not functioning and she is in support of hospitalization. Pts presentation and hx discussed with Dr. Elena, plan is for hospitalization. Patient's Address: [address] [place] [address] Other Phone Number: Who Do You Live With? Patient/Self Feel Safe Where You Live? Yes Feel Safe in Your Relationship Yes Marital Status: single Do You Have Children? No Primary Language? Cymro Language(s) Spoken At Home: Cymro Family/Informants Interviewed: Mother, Dr. Sommer (outpatient psychaitrist) Allergies - Coded Allergies: Penicillins (Severe, HIVES 02/11/16) cefaclor (From CECLOR) (Severe, RASH 02/11/16) bupropion (From WELLBUTRIN) (DIZZINESS 06/12/17) cariprazine (From VRAYLAR) (NAUSEA 06/12/17) ziprasidone (From GEODON) (GI DISTRESS 06/12/17) Current Medications - Scheduled Medications Duloxetine HCl (Cymbalta) 60 MG CAPSULE. 1 CAP PO DAILY MENTAL HEALTH #30 ( Reported) Entered as Reported by Kyle Davidson on 05/21/18 1528 Mirtazapine 15 MG TABLET 1 TAB PO QPM SLEEP #30 (Reported) Entered as Reported by Kyle Davidson on 05/21/18 1528 Oxcarbazepine (Trileptal) 300 MG TABLET 1 TAB PO QAM mood stabilization #14 TAB Prescribed by Queenie Cheung APRN on 06/17/17 Oxcarbazepine (Trileptal) 600 MG TABLET 1 TAB PO AT BEDTIME mood stabilization #14 TAB Prescribed by Queenie Cheung APRN on 06/17/17 Quetiapine Fumarate 300 MG TABLET 1 TAB PO AT BEDTIME mood stabilization #14 TAB Prescribed by Queenie Cheung APRN on 06/17/17 Consequences of Psych Med Use: Inconsistent effectiveness Lab Results: Laboratory Tests 05/21/18 1805: Urine Opiates Screen < 100, Methadone Screen 81, Barbiturate Screen < 60, Ur Phencyclidine Scrn < 6.00, Amphetamines Screen < 100, U Benzodiazepines Scrn < 85, Urine Cocaine Screen < 50, Urine Cannabis Screen < 5.00, Urinalysis PACKD H , Urine Color YEL, Urine Clarity CLDY H, Urine pH 8.0, Ur Specific [place] 1.015, Urine Protein NEG, Urine Ketones NEG, Urine Nitrite NEG, Urine Bilirubin NEG, Urine Urobilinogen 1.0, Ur Leukocyte Esterase NEG, Ur Microscopic SEDIMENT EXAMINED, Urine Hemoglobin NEG, Urine Glucose NEG 05/21/18 1535: Anion Gap 10, Estimated GFR > 60, BUN/Creatinine Ratio 17.8, Glucose 81, Calcium 9.1, Total Bilirubin 0.4, AST 21, ALT 38, Alkaline Phosphatase 56, Total Protein 6.5, Albumin 3.9, Globulin 2.6, Albumin/Globulin Ratio 1.5, CBC w Diff NO MAN DIFF REQ, RBC 5.42, MCV 86.9, MCH 29.0, MCHC 33.4, RDW 13.3, MPV 8.4, Gran % 63.0, Lymphocytes % 21.4, Monocytes % 10.7 H, Eosinophils % 4.4, Basophils % 0.5, Absolute Granulocytes 3.2, Absolute Lymphocytes 1.1 L, Absolute Monocytes 0.5, Absolute Eosinophils 0.2, Absolute Basophils 0, Serum Alcohol < 10.0 Toxicology Screen Completed? Yes Results: negative Symptoms of Use: n/a Past History Past Medical History Medical History: Psychiatric history Past Surgical History Surgical History none Abuse/Trauma History Trauma History/Current Trauma: Denies Legal History Current Legal Status: none Have you ever been arrested? No Number of Arrests: 0 Psychosocial History Strengths/Capabilities: Motivated for treatment, supportive family, stable housing Physical Limitations (Interventions): None Psychiatric Treatment History Psych Treatment Psychiatric Treatment Yes Inpatient Treatment Yes Outpatient Treatment Yes [facility] [place] Reason for Treatment Bipolar, depression, SI Dates of Treatment long hx Response to Treatment inconsistent Diagnosis by History: Bipolar Disorder Risk Factors: access to lethal means, chronic/serious med cond., high anxiety/ distress, history of suicide atmpts, SA/MH hospitalized, lack of outcome concern , lives alone, male, limited support Substance Use/Abuse History Drug Use/Abuse minimum 12mo Hx Substances Used/Abused No Substance Abuse Treatment Substance Abuse Treatment Past Substance Abuse [place] No Sexual History Sexual Concerns: None reported Education History Highest Level of Education: high school/GED Preferred Learning Style: visual, auditory, experiential Current Mental Status Mental Status Orientation: Person, Place, Situation Affect: Depressed, Sad Speech: WNL Neuro-vegetative: Concentration Poor, Loss of Interest, Sleep Disturbance Appearance Appearance- Dress/Hygiene: appropriate Behaviors Thought Process: WNL Thought Content: WNL Memory: WNL Insight: Fair SI/HI Risk Assessment - Minimum 6mo History- Past Suicidal Ideation/Attempts Yes Current Suicidal Ideation/Att Yes Past Homicidal Ideation/Att: No Current Homicidal Ideation/Attempts No Degree of Intent: Wishes to be , no plan Danger To: Self Gravely Disabled: Inability Risk Factors: access to lethal means, chronic/serious med cond., high anxiety/ distress, history of suicide atmpts, SA/MH hospitalized, lack of outcome concern , lives alone, male, limited support Lethality Ratin Needs/Init [place] Plan/Goals: Monitor mental status and safety, participate in medication management, individual and group therapy. AUDIT-C Questionnaire: AUDIT-C Questionnaire: Response Value ETOH use in the past year Never 0 Total 0 DSM5/PS Stressors/Medical Prob Diagnosis' (DSM 5, Stressors, Medical): F31.9 Unspecified Bipolar and Related Disorder Current GAF: 29
--- NOTE | 2018-05-21 19:54 | SOCIAL WORKER SOCIAL HX PSYCH ---
Social History Basic Assessment Insurance Authorization: Insurance #1: Insurance name: GUADALUPE LEAVITT Phone number: Policy number: [id number] Group number: Authorization number: Curr Source of Income/Entitlements: [facility] Primary Care Physician: Patient's PCP: David Vargas MD PCP's Present Problem: The patient is a 28 year old single male brought to the ED by his mother at the patient's request. The pt stated "I am feeling more depressed and more irritable." The pt reports he was scheduled today for his second day of IOP and came to ED instead. The pt is requesting inpatient treatment. During this assessment the patient presented calm, cooperative, alert and oriented. The pt made poor eye contact and his speech was goal directed. The pt reports he wishes he was but denies a suicide plan. The pt denies HI, AH and VH. The pt also stated he has urges to go crazy but he holds back. The pt stated if he did not hold back he would scream. The patient denies drug and alcohol use and his toxicology screen is negative. The patient reports 8 -9 past hospitalizations for depression with SI. The pt stated he was last hospitalized approximately 1 year ago. The pt reports 1 past suicide attempt approximately 7 years ago. The pt stated he took an overdose of his prescribed medication which he slept off then went to the hospital. The pt denies any recent stressors increasing his depression. The pt reports sleep meter changes records clerk the past 2 weeks. The pt reports that 2 weeks ago he was sleeping 5 hours per night and for the past week he has been sleeping 10 hours per night. The pt reports poor concentration, lack of interest and inconsistent appetite. The pt reports he lives by himself for the past 6 months in a condo he rents from his mother. The pt stated his parents and siblings are supportive of him. The pt reports his only source of income is disability for mental illness. The pt reports he is prescribed Cymbalta, Trileptal, Seroquel and Mirtazapine which he takes as prescribed. The pt stated he has been in treatment with Dr. Sommer for approximately the past [address] Sommer referred the pt to [facility]. The pt last saw Dr. Sommer approximately 1 week ago. The C-SSRS was completed and placed in the pts chart. This tag writer spoke by phone with the pts mother Jazmine Frey ([phone]) who stated the pt is very depressed. Mother reports the pt missed IOP last week. The mother stated the pt has been focused on the recent suicides covered in the news. Mother stated she sees the pt declining and she is in support of hospitalization. Mother reports she doesnt know what else to do. This tag writer spoke by phone with Dr. Sommer who stated the pts depression is worse which is why she referred him to IOP. Dr. Sommer stated the pt is not functioning and she is in support of hospitalization. Primary Language? Faroese Language(s) Spoken At Home: Faroese Living Situation Rents or Owns Home? rents Other Living Arrangement: Rents condo from mother Residential Care/Treatment Fac n/a Feel Safe Where You Are Living Yes Feel Safe in Relationships? Yes Allergies - Coded Allergies: Penicillins (Severe, HIVES 02/11/16) cefaclor (From CECLOR) (Severe, RASH 02/11/16) bupropion (From WELLBUTRIN) (DIZZINESS 06/12/17) cariprazine (From VRAYLAR) (NAUSEA 06/12/17) ziprasidone (From GEODON) (GI DISTRESS 06/12/17) Current Medications - Scheduled Medications Duloxetine HCl (Cymbalta) 60 MG CAPSULE.DR Lakhani CAP PO DAILY MENTAL HEALTH #30 ( Reported) Entered as Reported by Kyle Davidson on 05/21/18 1528 Mirtazapine 15 MG TABLET 1 TAB PO QPM SLEEP #30 (Reported) Entered as Reported by Kyle Davidson on 05/21/18 1528 Oxcarbazepine (Trileptal) 300 MG TABLET 1 TAB PO QAM mood stabilization #14 TAB Prescribed by Queenie Cheung APRN on 06/17/17 Oxcarbazepine (Trileptal) 600 MG TABLET 1 TAB PO AT BEDTIME mood stabilization #14 TAB Prescribed by Queenie Cheung APRN on 06/17/17 Quetiapine Fumarate 300 MG TABLET 1 TAB PO AT BEDTIME mood stabilization #14 TAB Prescribed by Queenie Cheung APRN on 06/17/17 Consequences of Psych Med Use: inconsistent effectiveness Past History Past Medical History Neurological: NONE EENT: NONE Cardiovascular: NONE Respiratory: NONE Gastrointestinal: NONE Hepatic: NONE Renal: nephrolithiasis Musculoskeletal: NONE Psychiatric: bipolar disease, depression Endocrine: NONE Blood Disorders: NONE Cancer(s): NONE BEER RUNNER/Reproductive: NONE Past Surgical History Surgical History: N /Family History Place/Country of Origin: [place], [place] Childhood Family Constellation: Mother, father, brother, two sisters Primary Childhood Caretakers: father, mother Family Life During Childhood: "Good" DCF Involvement? No Mother's Age (Current/): 66 Relationship w/Mother: Very good Father's Age (Current/): 66 Relationship w/Father: Good Any Sibling(s)? Yes Sibling's Gender(s)/Age(s): male Sibling 1:, female Sibling 2:, female Sibling 3: Relationship w/Sibling(s): Good. Gets along best with his older sister,44. Younger sister is 38 Relationship w/Friends: Many supportive friends from hinduism Family Psych/Sub Abuse/Add Hx: Denies family psychiatric history. Substance abuse: The patient feels his father drinks alcoholically. Abuse/Trauma History Trauma History/Current Trauma: Denies Legal History Legal Guardian/Address/Phone: N/A Current Legal Status: none Pending Court Dates: n/a Have you ever been arrested No Number of Arrests: 0 Hx of Juvenile Legal Charges? No Hx of Adult Legal Charges? No Civil Proceedings: None Domestic Relations Court: None Child Protective Serv Involvmnt No Clerk Typist n/a Psychosocial History Primary Support System: mother Strengths/Capabilities: Motivated for treatment, supportive family, stable housing Weaknesses: Bipolar related symptoms Physical Limitations (Interventions): None Last Physical: More than 2 years ago History of Seizures? No History of Blackouts? No ADL Limitations: None [place]/Social/Peer Relations Many friends from hinduism, more than 100. Good relationship with them Meaningful Activities: walking, video games, hinduism activities. Childhood Gnosticism: Jehovah Witness Current Temple Affiliation: Jehovah Witness Is Spirituality Important to You? Yes Patient's Ethnicity: [place] Cultural/Ethnic Issues: None Are There Developmental Issues? Yes If Yes, Explain: Talking delayed Milestones Achieved: fine motor, gross motor Psychiatric Treatment History Psych Treatment Inpatient Treatment Yes [facility] Treatment Yes [facility] 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 Treatment at [facility] and [facility]. [place] inpatient 2017 Diagnosis: Bipolar Disorder Psychodynamic Issues: Patient is staying in his mother's condo. Per prior notes, is waiting for his own apartment. Risk Factors: access to lethal means, chronic/serious med cond., high anxiety/ distress, history of suicide atmpts, SA/MH hospitalized, lack of outcome concern , lives alone, male, limited support Substance Use/Abuse History Drug Use/Abuse:Min 12 mo hx Substance Used/Abused No History Relapse History? No Have You Ever Attended AA? No Do You Attend AA Currently? No Do You Have a Sponsor? No Symptoms of Use: n/a Substance Abuse Treatment Substance Abuse Treatment Inpatient Treatment No Sexual History Sexually Active No # of partners 0 Sexual Orientation Heterosexual Sexual Concerns: None reported Education History Highest Level of Education: high school/GED Highest Grade Completed: 12 Number of College Years: 0 Preferred Learning Style: visual, auditory, experiential HX of Learning Difficulties: None reported Barriers to Learning: None reported Special Communication Needs: None reported Employment History Employment Disability Not in Labor Force: Disabled Vocation/Occupational Hx: 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 No. of Jobs in Last 5 Years: 1 Attendance: Normal Performance: Good History Have You Been in The ? No Current Mental Status Mental Status Orientation: Person, Place, Situation Affect: Depressed, Sad Speech: WNL Neuro-vegetative: Concentration Poor, Loss of Interest, Sleep Disturbance Appearance Appearance- Dress/Hygiene: appropriate Behaviors Thought Process: WNL Thought Content: WNL Memory: WNL Insight: Fair SI/HI Risk Assessment Past Suicidal Ideation/Attempts Yes Current Suicidal Ideation/Att Yes Past Homicidal Ideation/Att: No Current Homicidal Ideation/Attempts No Degree of Intent: Wishes to be , no plan Danger To: Self Gravely Disabled: Inability Risk Factors: Chronic/serious med cond, High Anxiety/Distress, SA/MH Hospitalization(s), Hx of suicide attempt(s), Lives alone, Lack of concern outcome, Male Lethality Ratin - Conclusion and Recommendations for treatment - and discharge planning Summary: Pt is in need of hospitalization for safety and grave disability. Depression related symptoms have increased over the past several weeks. Outpt psychiatrist stated the pt is "not functioning."
[2018-05-22 08:10] VITALS: BP 109/69
--- NOTE | 2018-05-22 09:09 | CPS PROVIDER INIT ASMT PSYCH ---
Psychiatric Admission Service Car Operator's Note Reviewed: Yes Patient Seen and Examined: Yes Identifying Information: 28 year old single male Chief Complaint: "I am feeling more depressed and more irritable." Reaction to Hospitalization: The patient was admitted voluntarily History of Present Illness Onset of Illness: Patient has been seeing Dr. Sommer in the outpatient department for about 2 or 3 months, it seems that on May 11 the sense was that the patient should be moved to a higher level "to the intensive outpatient program and he was seen for an intake for the intensive outpatient program on May 14, 2018. Circumstances Leading to Admission: According to the 05/21/18 notes of the district fire management officer, Venkat Trujillo , STONE SPLITTER: "Pt. brought to the ED by his mother at the patient's request. Pt. stated "I am feeling more depressed and more irritable." The pt reports he was scheduled today for his second day of IOP and came to ED instead. Pt. requesting inpatient treatment. During this assessment the patient presented calm, cooperative, alert and oriented. The pt made poor eye contact and his speech was goal directed. The pt reports he wishes he was but denies a suicide plan. pt denies HI, AH and VH. The pt also stated he has urges to go crazy but he holds back. The pt stated if he did not hold back he would scream. The patient denies drug and alcohol use and his toxicology screen is negative. pt. reports 8 -9 past hospitalizations for depression with SI (last was approximately 1 year ago. The pt reports 1 past suicide attempt approximately 7 years ago. The pt stated he took an overdose of his prescribed medication which he slept off then went to the hospital. The pt denies any recent stressors increasing his depression. The pt reports sleep roll changer the past 2 weeks. The pt reports that 2 weeks ago he was sleeping 5 hours per night and for the past week he has been sleeping 10 hours per night. The pt reports poor concentration, lack of interest and inconsistent appetite. Problem(s) Justifying Need for Admission: he wishes he was Past Psychiatric History Past Diagnosis(es)- if any: Unspecified Bipolar disorder Past Precipitating Factors- if any: It is not clear what the precipitants were in his previous admission or this one. - Include inpatient and outpatient treatment Treatment History: The patient was in the intensive outpatient program with Dr. Sommer for about 2-3 months and then he did intensive outpatient program just for a week or so prior to being admitted. The patient has been in the inpatient psychiatric unit back in 2017. History of Suicide Attempts or Gestures The previous admission at [facility] suggested that there was a suicide attempt in the past or more, no details Substance Abuse History: Patient denied abusing alcohol or substances Allergies: Coded Allergies: Penicillins (Severe, HIVES 02/11/16) cefaclor (From CECLOR) (Severe, RASH 02/11/16) bupropion (From WELLBUTRIN) (DIZZINESS 06/12/17) cariprazine (From VRAYLAR) (NAUSEA 06/12/17) ziprasidone (From GEODON) (GI DISTRESS 06/12/17) Home Med List: Duloxetine HCl (Cymbalta) 60 MG CAPSULE.DR 1 CAP PO DAILY MENTAL HEALTH #30 ( Reported) Entered as Reported by Kyle Davidson on 05/21/18 1528 Mirtazapine 15 MG TABLET 1 TAB PO QPM SLEEP #30 (Reported) Entered as Reported by Kyle Davidson on 05/21/18 1528 Oxcarbazepine (Trileptal) 300 MG TABLET 1 TAB PO QAM mood stabilization #14 TAB Prescribed by Queenie Cheung APRN on 06/17/17 Oxcarbazepine (Trileptal) 600 MG TABLET 1 TAB PO AT BEDTIME mood stabilization #14 TAB Prescribed by Queenie Cheung APRN on 06/17/17 Quetiapine Fumarate 300 MG TABLET 1 TAB PO AT BEDTIME mood stabilization - Include any medical condition(s) that may - impact the patient's recovery/remission Past Medical History: He denied any significant physical health problems There was at one point history of kidney stones. Past History Medical History Neurological: NONE EENT: NONE Cardiovascular: NONE Respiratory: NONE Gastrointestinal: NONE Hepatic: NONE Renal: nephrolithiasis Musculoskeletal: NONE Psychiatric: bipolar disease, depression Endocrine: NONE Blood Disorders: NONE Cancer(s): NONE FEDERAL AGENT/Reproductive: NONE History of MRSA: No History of VRE: No History of CDIFF: No Isolation History: Standard Surgical History Surgical History: none Psychiatric Family/Social Hx Family History Psychiatric Illness: Previous record indicated that Sister suffers from anxiety Substance Use: Previous record indicated no family history of substance use Suicides: Previous record indicated no history of suicides in the family Social History Living Situation: Patient lives with mother Significant Relationships (family/friends): Mother Education: High school graduate Vocation/Occupation: Unemployed and receives Social Security disability Legal: Denied legal entanglements past or present Healthly Behaviors Screening Tobacco Screening Tobacco Use from ED Docu: Never used - If tobacco counseling indicated - the following topics are required. - #1 Recognizing dangerous situations. - #2 Coping Skills. - #3 Basic information about quitting. Status of Tobacco Cessation Counseling: Not Applicable Cessation Med Status Not Applicable Alcohol Screening - ETOH screen POS if BAL >=80 or Audit-C>= M4/F3 Audit-C Score from Diag Assess: 0 Blood Alcohol Level: Laboratory Tests 05/21 1535 Toxicology Serum Alcohol (<10 MG/DL) < 10.0 Alcohol Use Screening Results: Neg per Audit C &/or BAL - If ETOH counseling indicated - the following topics are required. - #1 Express concern about the patient's - drinking at unhealthy levels, include informing - of national norms for moderate drinking: - men <= 14 drinks/week, max 4 drinks/occasion - women <= 7 drinks/week, max 3 drinks/occasion - #2 Providing feedback, including linking alcohol to - negative physical effects (liver injury, hypertension) - negative emotional effects (relationship problems and - depression) - negative occupational consequences (reduced work - performance) - #3 Advising the patient to abstain from alcohol or - to drink below national norms for moderate drinking - (as listed above). Status of ETOH Use Counseling: N/A B/C NO ETOH Use Metabolic Screening - Screen if on a Neuroleptic Medication - Metabolic screening should include: - Blood Pressure, BMI, Glucose or Hgb A1c, & a - Lipid profile from within the past 365 days. Metabolic Screening Patient on a neuroleptic(s) . Enter below results for Hemoglobin A1C, and lipid panel if obtained during the last 365 days. BMI: 30.300 Blood Pressure: 111/65 Laboratory Results From [facility] (If applicable): Lab Cholesterol 136 MG/DL 06/14/17 0641 Cholesterol/HDL Ratio 4 % 06/14/17 0641 HDL Cholesterol 37 mg/dL L 06/14/17 0641 Hemoglobin A1c 4.8 % 06/14/17 0641 LDL Cholesterol, Calc 81 mg/dL 06/14/17 0641 Triglycerides 91 mg/dL 06/14/17 0641 Exam and Plan Mental Status Examination Ambulation Status: The patient was steady on his feet Appearance: Unremarkable appearance Attitude towards examiner: He was calm and cooperative Psychomotor activity: Reduce psychomotor activity he looked tired or sedated or both Behavior: No abnormal behaviors Quality of speech: Reduced speech Affect: Constricted affect Mood: Depressed Suicidal Ideation: Passive wishes of but no thoughts of suicide today. Homicidal Ideation: Denied violent thoughts or thoughts of homicide Hallucinations: He denied hallucinations. Paranoid/Delusional Material: He denied feeling paranoid, there were no delusions during the interview. Difficulties with thought organization: He was coherent, there was no thought disorder. Insight: Seems to have partial insight. Judgment: Seems to have good judgment in hypothetical situations. Orientation: He was alert and oriented to time, place and person Cognition: Mild difficulties with attention and concentration probably due to tiredness, sedation, or both Memory Function: No evidence of gross impairment in short-term memory during the interview. Estimate of intellectual functioning: Average Assets/Strengths Patient Identified Assets/Strengths: Patient has a supportive mother. Impression/Plan Impression and Plan: 28-year-old single white male who presented because of increasing depression and passive wishes of . - Include all active medical diagnosis that require tx DSM 5 Diagnosis(es): Unspecified bipolar disorder by history - Initial Tx Plan for Active Psych & Medical Conditions Treatment Plan: Inpatient psychiatric care with safety checks every 15 minutes Discontinue mirtazapine and Increase dose of Cymbalta - Factors that would help patient function - in a less restrictive setting. Factors: Patient will be discharge if he has 2 consecutive days without wishing .
[2018-05-22 11:53] VITALS: BP 111/65
[2018-05-22 15:44] VITALS: BP 141/73
--- NOTE | 2018-05-22 17:38 | History & Physical ---
General Information and HPI MD Statement: I have seen and personally examined ODALIS NUNEZ and documented this H&P. The patient is a 28 year old M who presented with a patient stated chief complaint of depressed. Source of Information: patient Exam Limitations: no limitations History of Present Illness: 28-year-old male with past medical history significant for bipolar disease and depression who is admitted to Inpatient Psychiatry with increasing depression. Patient does follow up with outpatient psychiatry and says that the medications were not working for him. He was feeling more depressed. He was sleeping for long times and did not want to being taken to things. He had decreased appetite. He was brought in by his mother for management of depression. He denies any suicidal or homicidal ideations. He currently denies any aches or pains, no nausea, no vomiting, no shortness of breath, no chest pain, no headaches. Allergies/Medications Allergies: Coded Allergies: Penicillins (Severe, HIVES 02/11/16) cefaclor (From CECLOR) (Severe, RASH 02/11/16) bupropion (From WELLBUTRIN) (DIZZINESS 06/12/17) cariprazine (From VRAYLAR) (NAUSEA 06/12/17) ziprasidone (From GEODON) (GI DISTRESS 06/12/17) Home Med list Duloxetine HCl (Cymbalta) 60 MG CAPSULE.DR 1 CAP PO DAILY MENTAL HEALTH ( Reported) Mirtazapine 15 MG TABLET 1 TAB PO QPM SLEEP (Reported) Oxcarbazepine (Trileptal) 300 MG TABLET 1 TAB PO QAM mood stabilization Take 1 tab po QAM. Oxcarbazepine (Trileptal) 600 MG TABLET 1 TAB PO AT BEDTIME mood stabilization Take 1 tab po QHS. Quetiapine Fumarate 300 MG TABLET 1 TAB PO AT BEDTIME mood stabilization Take 1 tab po QHS. Past History Travel History Traveled to [place] past 21 day No Medical History Neurological: NONE EENT: NONE Cardiovascular: NONE Respiratory: NONE Gastrointestinal: NONE Hepatic: NONE Renal: nephrolithiasis Musculoskeletal: NONE Psychiatric: bipolar disease, depression Endocrine: NONE Blood Disorders: NONE Cancer(s): NONE ACQUISITION PROFESSIONAL/Reproductive: NONE History of MRSA: No History of VRE: No History of CDIFF: No Isolation History: Standard Surgical History Surgical History: N Past Family/Social History Family History Relations & Conditions if any Family history was reviewed; no changes noted. 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 Review of Systems Review of Systems Constitutional: Reports: see HPI. EENTM: Reports: see HPI. Cardiovascular: Reports: see HPI. Respiratory: Reports: see HPI. GI: Reports: see HPI. Musculoskeletal: Reports: see HPI. Neurological/Psychological: Reports: see HPI. Exam & Diagnostic Data Last 24 Hrs of Vital Signs/I&O Vital Signs Date Time Temp Pulse Resp B/P B/P Pulse O2 O2 Flow FiO2 Mean Ox Delivery Rate 05/22 1544 96 141/73 05/22 1153 86 111/65 05/22 0810 97.4 93 109/69 05/21 1913 98.3 79 16 110/60 95 Room Air Intake & Output 05/22 1600 05/22 0800 05/22 0000 Intake Total Output Total Balance Patient 236 lb Weight Physical Exam General Appearance Alert, Oriented X3, looks depressed Skin No Rashes HEENT PERRLA Neck Supple Cardiovascular Regular Rate, Normal S1, Normal S2 Lungs Clear to Auscultation Abdomen Normal Bowel Sounds, Soft, No Tenderness Neurological Cranial Nerves II through XII: intact Last 24 Hrs of Labs/Humberto: Laboratory Tests 05/21/18 1805: Urine Opiates Screen < 100, Methadone Screen 81, Barbiturate Screen < 60, Ur Phencyclidine Scrn < 6.00, Amphetamines Screen < 100, U Benzodiazepines Scrn < 85, Urine Cocaine Screen < 50, Urine Cannabis Screen < 5.00, Urinalysis PACKD H , Urine Color YEL, Urine Clarity CLDY H, Urine pH 8.0, Ur Specific Lawrence 1.015, Urine Protein NEG, Urine Ketones NEG, Urine Nitrite NEG, Urine Bilirubin NEG, Urine Urobilinogen 1.0, Ur Leukocyte Esterase NEG, Ur Microscopic SEDIMENT EXAMINED, Urine Hemoglobin NEG, Urine Glucose NEG Laboratory Tests 05/21 05/21 1805 1535 Chemistry Sodium (137 - 145 mmol/L) 145 Potassium (3.5 - 5.1 mmol/L) 4.5 Chloride (98 - 107 mmol/L) 103 Carbon Dioxide (22 - 30 mmol/L) 33 H Anion Gap (5 - 16) 10 BUN (9 - 20 mg/dL) 16 Creatinine (0.7 - 1.2 mg/dL) 0.9 Estimated GFR (>60 ml/min) > 60 BUN/Creatinine Ratio (7 - 25 %) 17.8 Glucose (65 - 99 mg/dL) 81 Calcium (8.4 - 10.2 mg/dL) 9.1 Total Bilirubin (0.2 - 1.3 mg/dL) 0.4 AST (17 - 59 U/L) 21 ALT (21 - 72 U/L) 38 Alkaline Phosphatase (< 127 U/L) 56 Total Protein (6.3 - 8.2 g/dL) 6.5 Albumin (3.5 - 5.0 g/dL) 3.9 Globulin (1.9 - 4.2 gm/dL) 2.6 Albumin/Globulin Ratio (1.1 - 2.2 %) 1.5 Hematology CBC w Diff NO MAN DIFF REQ WBC (4.8 - 10.8 /CUMM) 5.0 RBC (4.70 - 6.10 /CUMM) 5.42 Hgb (14.0 - 18.0 G/DL) 15.8 Hct (42 - 52 %) 47.2 MCV (80.0 - 94.0 FL) 86.9 MCH (27.0 - 31.0 PG) 29.0 MCHC (33.0 - 37.0 G/DL) 33.4 RDW (11.5 - 14.5 %) 13.3 Plt Count (130 - 400 /CUMM) 194 MPV (7.4 - 10.4 FL) 8.4 Gran % (42.2 - 75.2 %) 63.0 Lymphocytes % (20.5 - 51.1 %) 21.4 Monocytes % (1.7 - 9.3 %) 10.7 H Eosinophils % (0 - 5 %) 4.4 Basophils % (0.0 - 2.0 %) 0.5 Absolute Granulocytes (1.4 - 6.5 /CUMM) 3.2 Absolute Lymphocytes (1.2 - 3.4 /CUMM) 1.1 L Absolute Monocytes (0.10 - 0.60 /CUMM) 0.5 Absolute Eosinophils (0.0 - 0.7 /CUMM) 0.2 Absolute Basophils (0.0 - 0.2 /CUMM) 0 Toxicology Urine Opiates Screen (>2000 NG/ML) < 100 Methadone Screen (>300 NG/ML) 81 Barbiturate Screen (>200 NG/ML) < 60 Ur Phencyclidine Scrn (>25 NG/ML) < 6.00 Amphetamines Screen (>1000 NG/ML) < 100 U Benzodiazepines Scrn (>200 NG/ML) < 85 Urine Cocaine Screen (>300 NG/ML) < 50 Urine Cannabis Screen (>50 NG/ML) < 5.00 Serum Alcohol (<10 MG/DL) < 10.0 Urines Urinalysis PACKD H Urine Color (YEL,AMB,STR) YEL Urine Clarity (CLEAR) CLDY H Urine pH (5.0 - 8.0) 8.0 Ur Specific Lawrence (1.001 - 1.035) 1.015 Urine Protein (NEG,<30 MG/DL) NEG Urine Ketones (NEG) NEG Urine Nitrite (NEG) NEG Urine Bilirubin (NEG) NEG Urine Urobilinogen (0.1 - 1.0 EU/dl) 1.0 Ur Leukocyte Esterase (NEG) NEG Ur Microscopic SEDIMENT EXAMINED Urine Hemoglobin (NEG) NEG Urine Glucose (N MG/DL) NEG Assessment/Plan Assessment: 28-year-old male with history of depression who is admitted with worsening depression. I reviewed his blood work. His bicarbonate is high but that could be secondary to dehydration. Encourage fluid intake by mouth. For his depression I believe his further management up to the psychiatrist. As Ranked By This Provider Problem List: 1. Depression 2. Bipolar disorder current episode depressed Miscellaneous Miscellaneous Documentation Attending Case Discussed With: Verna Pena M.D. Primary Care Physician: Sam BERUMEN,David Hassan Patient sees these Specialists psychiatrist Level of Patient Care: GELY Enriquez
[2018-05-22 19:55] VITALS: BP 143/77
[2018-05-23 08:08] VITALS: BP 110/67
--- NOTE | 2018-05-23 08:29 | CP SOUTH PROGRESS NOTE PSYCH ---
Psych (Inpt) Progress Note Progress Note Vital Signs Date Time Temp Pulse Resp B/P B/P Pulse O2 O2 Flow FiO2 05/23 0808 97.4 98 110/67 05/22 1955 98.7 96 143/77 05/22 1544 96 141/73 05/22 1153 86 111/65 Mental Status Examination Seemed over-sedated but arousable and oriented to time, place and person. He was in bed until about 11:45 AM Unremarkable appearance He was calm and cooperative Reduce psychomotor activity he looked tired or sedated or both No abnormal behaviors Reduced speech Constricted affect, depressed mood, wishes of but no thoughts of suicide today. Denied violent thoughts or thoughts of homicide He denied hallucinations. He denied feeling paranoid, there were no delusions during the interview. He was coherent, there was no thought disorder. Seems to have partial insight. Seems to have good judgment in hypothetical situations. Mild difficulties with attention and concentration probably due to tiredness/sedation, or both No evidence of gross impairment in short-term memory during the interview. Assessment: 28-year-old single white male who presented because of increasing depression and passive wishes of . The patient continues to be oversedated and tired DSM 5 Diagnosis(es): Unspecified bipolar disorder by history Treatment Plan Update: Reduce Oxcarbazepine to 300 mg BID Continue Cymbalta 90 mg daily Quetiapine Fumarate 300 MG AT BEDTIME passive wishes of . - Include all active medical diagnosis that require tx DSM 5 Diagnosis(es): Unspecified bipolar disorder by history - Initial Tx Plan for Active Psych & Medical Conditions Treatment Plan: Inpatient psychiatric care with safety checks every 15 minutes Discontinue mirtazapine and Increase dose of Cymbalta
[2018-05-23 12:01] VITALS: BP 131/70
[2018-05-23 15:45] VITALS: BP 137/82
[2018-05-23 19:51] VITALS: BP 142/75
[2018-05-24 08:49] VITALS: BP 130/78
--- NOTE | 2018-05-24 08:51 | CP SOUTH PROGRESS NOTE PSYCH ---
Psych (Inpt) Progress Note Progress Note Treatment team (ROSA, RN, OTR/L & Activities Therapist, Psychiatrist) discussed the Pt.'s progress, treatment plan, and aftercare plans. Vital Signs Date Time Temp Pulse B/P B/P Pulse O2 FiO2 05/24 1217 97 129/61 05/24 0849 97.3 92 130/78 05/23 1951 98.6 92 142/75 05/23 1545 88 137/82 Mental Status Examination less sedated, oriented to time, place and person. He was calm and cooperative. He showed reduced psychomotor activity, no abnormal behaviors, reduced speech, constricted affect, depressed mood, wishes of but no thoughts of suicide today. He denied violent thoughts or thoughts of homicide. He denied hallucinations. He denied feeling paranoid, there were no delusions during the interview. He was coherent, there was no thought disorder. Seems to have partial insight. Seems to have good judgment in hypothetical situations. Mild difficulties with attention and concentration probably due to tiredness/sedation , or both. No evidence of gross impairment in short-term memory during the interview. Assessment: A 28-year-old Single white male who presented because of increasing depression and passive wishes of . The patient is starting to show some improvement Diagnosis(es): Unspecified bipolar disorder by history Treatment Plan Update: Redue Quetiapine Fumarate to 250 mg at bedtime Continue Oxcarbazepine 300 mg BID Continue Cymbalta 90 mg daily
[2018-05-24 12:17] VITALS: BP 129/61
[2018-05-24 16:14] VITALS: BP 141/67
--- NOTE | 2018-05-24 17:03 | SOCIAL WORKER PROG NOTE PSYCH ---
Social Work Progress Note Progress Note The services requested require additional review. You will be contacted regarding the status of this request if further information is needed. An authorization decision will be made within the required timeframes and details of that decision may be found under the member's authorization history. Member Name Member ID Member Subscriber Name Subscriber ID ODALIS NUNEZ [id number] 1990 ODALIS NUNEZ [id number] Pended Authorization # Client Authorization # Type of Request [id number] CONCURRENT Date of Admission/ Start of Services Requested From Submission Date 05/21/2018 05/24/2018 05/24/2018 Level of Service Type of Service Level of Care Type of Care INPATIENT/HLOC [facility] Reason Code P76 Provider Name & Address Provider ID Provider Alternate ID NPI # for Authorization FELICIA DORSEY [id number] [address] [place] [id number]
--- NOTE | 2018-05-24 17:19 | SOCIAL WORKER PROG NOTE PSYCH ---
Social Work Progress Note Progress Note This ad writer met with patient. He stated that he experienced a manic episode about 2 weeks ago (increased energy, decreased sleep consisting of about 5-6 hours of sleep per night) which lasted about 1 week. Patient described his depression at a 2/10 today. He denied SI/HI/AH/VH. He denied any substance use. Patient denied any anxiety. He described fluctuating moods and increased irritability. He stated that his depression began towards the end of his senior year in high school. He was unable to identify a trigger and denied any substance use at that time as well. Patient stated that he had just started [facility] and would like to return following discharge from [facility]. He was also agreeable to a family meeting with his mother, Jazmine Frey. He reported improved mood since admission. Patient does not currently work. 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 Patient was also agreeable to meeting with an IOP clinician prior to discharge. A message has been left for his clinician, Laura Matos , regarding this.
[2018-05-24 19:42] VITALS: BP 149/75
[2018-05-25 08:12] VITALS: BP 123/69
[2018-05-25 12:09] VITALS: BP 142/71
--- NOTE | 2018-05-25 12:59 | CP SOUTH PROGRESS NOTE PSYCH ---
Psych (Inpt) Progress Note Progress Note Treatment team (ROSA, RN, OTR/L & Activities Therapist, Psychiatrist) discussed the Pt.'s progress, treatment plan, and aftercare plans. Vital Signs: Vital Signs Date Time Temp Pulse B/P B/P Pulse O2 O2 Flow FiO2 05/25 1209 95 142/71 05/25 0812 97.2 99 123/69 05/24 1942 98.0 104 149/75 Mental Status Examination Alert/not sedated, oriented to time + place + person, calm and cooperative. The patient seemed tiny bit more animated today with normal psychomotor activity and no abnormal movements. He smiled a couple times during the interview and he was seen in the common area also interacting and occasionally laughing ( appropriately). There were no abnormal or bizarre behaviors. His speech was normal and not pressured and not slurred. He was more engaged in conversation today. And he has for the first time about discharge. He reported that his mood is tried starting to improve and he is feeling less depressed already, he denied feeling hopeless about his life and denied feeling that his life is worthless, he denied wishing , no thoughts of suicide today. He denied violent thoughts or thoughts of homicide. He denied hallucinations. He denied feeling paranoid, there were no delusions during the interview. He was coherent, there was no thought disorder. He showed improved attention and concentration and no evidence of gross impairment in short-term memory. Assessment: Colton is a 28-year-old Single White male who presented because of increasing depression and passive wishes of . The patient is starting to show improvement in mood, affect, psychomotor activity, and the first day he is denying wishes of . He has been denying thoughts of suicide and has been diet denying thoughts of violence or homicide. There are no psychotic symptoms. Diagnoses: Unspecified Bipolar disorder (by history) Treatment Plan Update: Continue quetiapine Fumarate 250 mg at bedtime Continue Oxcarbazepine 300 mg BID Continue Cymbalta 90 mg daily
[2018-05-25 15:47] VITALS: BP 131/72
--- NOTE | 2018-05-25 17:51 | SOCIAL WORKER PROG NOTE PSYCH ---
Social Work Progress Note Progress Note This rfp writer spoke kevin Echavarria at [facility], patient's IOP clinician. She will visit the patient tomorrow at 10:30am. This rfp writer met with patient. He described his mood as "good" and denied SI/HI/ AH/VH. Patient is willing to meet with [place] tomorrow. Patient discussed getting along well with peers and feeling improvement with mood. He is agreeable to a family meeting with his mother, Jazmine Frey. Ms. Frey was reached by phone ([phone]) and scheduled a family meeting for tomorrow, 05/25/18 at 2pm.
[2018-05-25 19:37] VITALS: BP 137/71
[2018-05-26 07:43] VITALS: BP 128/70
[2018-05-26 12:18] VITALS: BP 117/70
[2018-05-26] MEDS ORDERED: CYMBALTA60 M1 PO (14:35)
[2018-05-26] MEDS ORDERED: GABAPENTIN400 M2 PO (14:35)
[2018-05-26] MEDS ORDERED: QUETIAPINE FUM100 M1 PO (14:35)
[2018-05-26] MEDS ORDERED: TRILEPTAL300 M1 PO ×2 (14:35→15:00)
[2018-05-26] MEDS ORDERED: CYMBALTA30 M1 PO (14:35)
--- NOTE | 2018-05-26 14:36 | Patient Discharge Instructions ---
Psych Discharge Inst General Discharge Information Reason for Admission: severe depression and thoughts of suicide Psy Discharge Primary Diag+ bipolar ii Summary Tests/Major Procedures Lab Cholesterol 136 MG/DL 06/14/17 0641 Cholesterol/HDL Ratio 4 % 06/14/17 0641 HDL Cholesterol 37 mg/dL L 06/14/17 0641 Hemoglobin A1c 4.8 % 06/14/17 0641 LDL Cholesterol, Calc 81 mg/dL 06/14/17 0641 Triglycerides 91 mg/dL 06/14/17 0641 Studies Pending at DC: None Patient Instructions Contact Information Your Psychiatrist on [facility] was Dustin Elena MD * If you are experiencing an emergency related to this hospitalization, please call [phone] to contact the treating psychiatrist or the psychiatrist-on- call. * To Request a copy of your medical records, please contact the Medical Records Department at [phone]. * To request results of studies pending at the time of discharge, please call [phone]. * Continue your Medications until directed to stop by your Healthcare provider. General Medication Information Please continue to take your new medications and your continued home medications , unless otherwise indicated on your discharge medication list, or unless directed by your MD or PRODUCT SAFETY OFFICER to stop them. Special Instructions Diet Regular Activity Normal - Tobacco Use Treatment Offered Post DC Medications Offered: Not Applicable Post DC Tobacco Treatment Plan: Not Applicable - EtOH/Drug Use D/O Treatment Offered Post DC Medications Offered: NA-No EtOH/Drug Use D/O Post DC EtOH/SubAbuse TX Plan: NA-No EtOH/Drug Use D/O Advance Directives Does the Patient have Medical Advance Directives No/Refused further info Does Pt have Psychiatric Advance Directives? No/Refused further info Does Patient have a Designated Surrogate Decision Maker: No Information About Psychiatric Advance Directives Provided? Refused Discharge Plan Post Hospital Treatment Plan: [facility]
--- NOTE | 2018-05-26 14:39 | CP SOUTH PROGRESS NOTE PSYCH ---
Psych (Inpt) Progress Note Progress Note Treatment team (ROSA, RN, OTR/L & Activities Therapist, Psychiatrist) discussed the Pt.'s progress, treatment plan, and aftercare plans. Vital Signs: Date Time Temp Pulse B/P 05/26 1218 85 117/70 05/26 0743 96.9 91 128/70 05/25 1937 98.5 96 137/71 Mental Status Examination/Family meeting attendees: Pt., his mom, joan Das, ROSA and Psychiatrist, Dr. Elena Alert/not sedated, oriented to time + place + person, calm and cooperative, seemed more animated today with normal psychomotor activity and no abnormal movements. He smiled appropriately, I will also has been more interactive on the unit no abnormal or bizarre behaviors. His speech was normal and not pressured and not slurred. He reported that his mood is "better"/less depressed denied feeling hopeless about his life and denied feeling that his life is worthless, he denied wishing , no thoughts of suicide today. He denied violent thoughts or thoughts of homicide. He denied hallucinations, denied feeling paranoid, there were no delusions during the interview. He was coherent, there was no thought disorder, showed improved attention and concentration and no evidence of gross impairment in short-term memory. Assessment: Colton is a 28-year-old Single White Male who presented because of increasing depression and passive wishes of . The patient showed improvement in mood, affect, psychomotor activity, and he is denying wishes of x 48 hours. He has been denying thoughts of suicide and has been diet denying thoughts of violence or homicide. There are no psychotic symptoms. Diagnoses: Unspecified Bipolar disorder (by history) ? bipolar II vs. another mood disorder Treatment Plan Update: The patient may be discharged home to continue intensive outpatient program starting tomorrow.
--- NOTE | 2018-05-26 15:10 | DISCHARGE SUMMARY REPORT-PSYCH ---
Visit Information Visit Dates/Diagnosis' Admission Date: 05/21/18 Discharge Date: 05/26/18 Reason for Admission: severe depression and thoughts of suicide Psy Discharge Primary Diag: bipolar ii Hospital Course Course Allergies: Coded Allergies: Penicillins (Severe, HIVES 02/11/16) cefaclor (From CECLOR) (Severe, RASH 02/11/16) bupropion (From WELLBUTRIN) (DIZZINESS 06/12/17) cariprazine (From VRAYLAR) (NAUSEA 06/12/17) ziprasidone (From GEODON) (GI DISTRESS 06/12/17) Hospital Course/TX Response: 05/26/2018: Vital Signs: Date Time Temp Pulse B/P 05/26 1218 85 117/70 05/26 0743 96.9 91 128/70 05/25 1937 98.5 96 137/71 Mental Status Examination/Family meeting attendees: Pt., his mom, joan Das, WET END TESTER and Psychiatrist, Dr. Elena Alert/not sedated, oriented to time + place + person, calm and cooperative, seemed more animated today with normal psychomotor activity and no abnormal movements. He smiled appropriately, I will also has been more interactive on the unit no abnormal or bizarre behaviors. His speech was normal and not pressured and not slurred. He reported that his mood is "better"/less depressed denied feeling hopeless about his life and denied feeling that his life is worthless, he denied wishing , no thoughts of suicide today. He denied violent thoughts or thoughts of homicide. He denied hallucinations, denied feeling paranoid, there were no delusions during the interview. He was coherent, there was no thought disorder, showed improved attention and concentration and no evidence of gross impairment in short-term memory. Assessment: Colton is a 28-year-old Single White Male who presented because of increasing depression and passive wishes of . The patient showed improvement in mood, affect, psychomotor activity, and he is denying wishes of x 48 hours. He has been denying thoughts of suicide and has been diet denying thoughts of violence or homicide. There are no psychotic symptoms. Diagnoses: Unspecified Bipolar disorder (by history) ? bipolar II vs. another mood disorder Treatment Plan Update: The patient may be discharged home to continue intensive outpatient program starting tomorrow. Discharge HBIPS - Tobacco Use Treatment Offered - EtOH/Drug Use D/O Treatment Offered Metabolic Screening - Screen if on a Neuroleptic Medication - Metabolic screening should include: - Blood Pressure, BMI, Glucose or Hgb A1c, & a - Lipid profile from within the past 365 days. Discharge Instructions General Discharge Information Discharge Diet Regular Discharge Activity Normal Referrals Ordered Referrals Intensive Outpt Psychiatry 05/27/18 [address] [facility] [place] [address] [facility] [address] [place], [place] [phone] Intake appointment: , 05/27/18, at 9:30am Prescriptions Stop taking the following medications: Oxcarbazepine (Trileptal) 600 MG TABLET ORAL AT BEDTIME Qty = 14 Quetiapine Fumarate (Quetiapine Fumarate) 300 MG TABLET ORAL AT BEDTIME Qty = 14 Mirtazapine (Mirtazapine) 15 MG TABLET ORAL Every night Qty = 30 Start taking the following new medications: Gabapentin (Gabapentin) 400 MG CAPSULE 400 Milligram ORAL EVERY SIX HOURS NEEDED as needed for ANXIETY/AGITATION /INSOMNIA Qty = 60 No Refills Comments: Last Taken:05/25/18 Time:231 Duloxetine Hydrochloride (Cymbalta) 30 MG CAPSULE.DR 1 Capsule ORAL DAILY Qty = 30 No Refills Comments: Last Taken:05/26/18 (TOTAL DOSE OF 90 MG) Time:958 Quetiapine Fumarate (Quetiapine Fumarate) 100 MG TABLET 250 Milligram ORAL AT BEDTIME Qty = 45 No Refills Comments: Last Taken:05/25/18 Time:2200 The following medications have been changed: Old: Duloxetine HCl (Cymbalta) 60 MG CAPSULE.DR 1 Capsule ORAL DAILY Qty = 30 New: Duloxetine HCl (Cymbalta) 60 MG CAPSULE.DR 1 Capsule ORAL DAILY Qty = 30 Comments: Last Taken:05/26/18 (TOTAL DOSE OF 90 MG) Time:958 Old: Oxcarbazepine (Trileptal) 300 MG TABLET 1 Tablet ORAL TWICE DAILY Qty = 30 New: Oxcarbazepine (Trileptal) 300 MG TABLET 1 Tablet ORAL TWICE DAILY Qty = 30 Comments: Last Taken:05/26/18 Time:958 Studies Pending at Discharge None
--- NOTE | 2018-05-26 15:26 | SOCIAL WORKER PROG NOTE PSYCH ---
Social Work Progress Note Progress Note This curriculum writer met with patient. He described his mood as "good" and denied SI/HI/ AH/VH. Patient stated that he has noticed improvement in mood/symptoms since admission and his sleep has "normalized," specifically stating that he slept 7 hours last night - restful sleep. He reports that he feels the medication adjustment has been helpful. Patient stated that he would like to return to [facility] and is also considering individual therapy. He will discuss this furhter with the [facility] clinician. Patient also discussed interest in going to the gym and that he plans to create structure by going to the gym on his "off days" from [facility] (days that he does not attend). Patient was agreeable and felt safe to dischargetoday, pending the family meeting with his mother at 2pm today. This curriculum writer spoke with Laurel Kearney LPC at [facility] regarding the [facility] referral and was given an intake time of 9:30am on 05/27/18. 2:05pm Dr. Elena and this curriculum writer met with the patient and his mother for a family meeting. Patient's mother reported that she had observed that the patient was "tired all the time" and that he does well for a period of time "and then spirals." She observed improvement with patient's mood and symptoms since admission. Upon iqnuiry by Dr. Elena, patient and his mother briefly discussed his childhood stating that there were no significant concerns growing up and patient met milestones. They added that the patient began to demonstrate difficulty with depression.mood during his senior year of high school. Dr. Elena and this curriculum writer met with the patient's mother, without the patient. She stated that she did not have any concerns about him discharging today and returning to the [facility] tomorrow for an intake at 9:30am. Patient returned to the meeting. Both patient and his mother denied having any access to weapons/guns. Patient and his mother agreed to discharge and felt it would be safe to do so today without any concerns. Patient identified a safety plan in which he would "go to the hospital and talk with my mom." He accepted the crisis numbers and warm lines provided upon discharge. Patient discussed plans to create structure by going to the gym. This curriculum writer spoke wtmanish Knowles at [facility], as she and Italia met with the patient earlier today. She was informed of the plan to discharge today and the intake tomorrow. She was also informed of the patient's plan to create structure by going to the gym, which she stated that she would continue to encourage. Finally, a message was left for Italia Matos informing that the patient has expressed some interest in finding an individual therapist. Faxed Referral(s) Referred To: [facility] Transition of Care Documents sent: Health Summary Faxed to: [facility] Fax #: [phone] Faxed by: Nadja Das [facility] Date faxed: 05/26/18 Time Faxed: [phone] Comment: transfer summary was also included in this fax
--- NOTE | 2018-05-26 17:07 | SOCIAL WORKER PROG NOTE PSYCH ---
Social Work Progress Note Progress Note [facility] discharge entered: Determination Status: DISCHARGE COMPLETED Thank you. You have completed your discharge for this episode of care. Member Name Member ID Member Subscriber Name Subscriber ID ODALIS NUNEZ [id number] 1990 ODALIS NUNEZ [id number] Related Authorization # Related Client Authorization # Discharge # Discharge Date [id number] 05/26/2018 Level of Service Type of Service Level Of Care Type of Care IP - INPATIENT/HLOC P - Mental Health I - Inpatient CIP - Inpatient [facility]
== END 2018-05-26 16:00 | DRG 753 ==
LOC: ERH 14:34 → ERHI 19:05 → CP SOUTH 19:05 → ENTRNSPT 20:47 → EDTRNSPTSTS 20:52 → CMPTRNSPT 21:04 → CP SOUTH 21:10
PROVIDERS: Physician Assistant Medical
DX: F31.9 Bipolar disorder, unspecified (principal)
CPT/HCPCS: 80307; 81001; G0480